=== PATIENT | female | born 1945 | race Caucasian/White ===

== ENCOUNTER → 2017-12-14 11:01 | Outpatient (CLI) | payer MEDICARE, SELFPAY ==
[2017-12-14 13:00] LABS: T4 Free Direct 1.43 ng/dL (0.76-1.46); Thyroid Stim Hormone (TSH) 0.15 uIU/mL (0.358-3.74)
[2017-12-14 13:27] LABS: Hemoglobin A1c 10.1 % (4.2-6.3)
[2017-12-15 09:00] LABS: T3 Total - Triiodothyronine 0.89 ng/mL (0.6-1.81)
== END ==
PROVIDERS: Family Provider Family Medicine; PCP Family Medicine; Visit Provider Family Medicine
DX: E03.9 Hypothyroidism, unspecified (principal); E11.65 Type 2 diabetes mellitus with hyperglycemia
CPT/HCPCS: 36415; 83036; 84439; 84443; 84480

== ENCOUNTER 2019-04-24 20:38 | Emergency (ER) | payer MEDICARE, SELFPAY ==
[2019-04-24 20:39] VITALS: BP 159/68; PULSE 66; RESP 16; TEMP 36.7; O2SAT 99; BMI 26.6
[2019-04-24 21:01] LABS: Bedside Glucose 446 mg/dL (70-110)
[2019-04-24 21:11] LABS: Absolute Lymphocyte Count 1.09 X10^3/ul (0.83-4.51); Absolute Neutrophil Count 3.5 X10^3/uL (2.0-7.7); Basophil# 0.02 X10^3/uL; Basophil% 0.4 % (0-1); Eosinophil# 0.05 X10^3/uL; Hematocrit 37.3 % (37-47); Hemoglobin 13.1 g/dl (12.0-15.0); Lymphocyte # 1.09 X10^3/ul (4.0); Lymphocyte % 21.7 % (19-41); Mean Corp Hgb Conc 35.1 g/gl (32-36); Mean Corpuscular Hgb 28.1 pg (27.0-32.0); Mean Platelet Vol. 11.5 fl (6.2-12.0); Monocyte# 0.31 X10^3/uL; Monocyte% 6.2 % (0-10); Neutrophil # 3.53 X10^3/uL (2.7-7.7); Neutrophil % 70.3 % (47-70); Platelet Count 175 K/mm3 (150-450); RBC Distribution Width CV 12.8 % (11.6-14.6); RBC Distribution Width SD 36.9 fl (35.1-43.9); Red Blood Count 4.66 M/mm3 (4.2-5.4)
[2019-04-24] MEDS: 0.9% Normal Saline 1,000 ML 1000 ML IV ×2 (21:12→21:51)
[2019-04-24] MEDS: Insulin Lispro 100 UNIT/ML INSULN.PEN 10 UNIT SC (21:12)
[2019-04-24 21:26] LABS: POSITIVE COUNT NO; POSITIVE DIFFERENTIAL NO; POSITIVE MORPHOLOGY NO
[2019-04-24 21:30] LABS: Anion Gap 9 (5-15); BUN 15 mg/dL (7-18); BUN/Creat Ratio 15.5 RATIO (10-20); Calcium,Total 8.8 mg/dL (8.5-10.1); Chloride 100 mmol/L (98-107); Creatinine, Serum 0.97 mg/dL (0.55-1.02); EST Glomerular Filtration Rate 60 mL/min (>60); Est Glom Filt Rate - Afr Amer 72 mL/min (>60); Estimated Creatinine Clearance 45.09 ml/min; Glucose 415 mg/dL (74-106); Sodium Level 136 mmol/L (136-145)
[2019-04-24 22:03] LABS: Osmolality, Serum 301 mOsm/KG (280-301)
[2019-04-24 22:40] VITALS: BP 142/111; PULSE 58; RESP 21; TEMP 36.8; O2SAT 100
--- NOTE | 2019-04-24 22:42 | ED.VIS.GEN ---
History of Present Illness Chief Complaint: Hyperglycemia Narrative: Patient presenting for evaluation secondary to hyperglycemia. Patient reports that she has a underlying history of diabetes. She is to be on metformin, her primary care doctor switched her over to long-acting insulin. She reports that it was too expensive so she has been off of it for a year and a half. Patient states that since yesterday she has been feeling a little bit lightheaded, so she took her blood sugar tonight which she has not done in a long time and it was noted to be in the 400 range. She denies any other infectious signs or symptoms. She denies any chest pain or palpitations. Review of systems otherwise negative. Past Medical History - Allergies and Home Meds Allergies/Adverse Reactions: Allergies erythromycin base Allergy (Verified 04/24/19 20:38) Unknown Primary Care Physician: Flores Castillo DO [Primary Care Provider] - Surgical History: - - R lumpectomy. Smoking Status: Former smoker - Family History Maternal Family History: Reports: No pertinent history Paternal Family History: Reports: Diabetes, Heart Disease Review of Systems All systems negative except as indicated General: Reports: - - Slight lightheadedness. Denies: Fever Physical Exam Vital Signs/Narrative: Vital Signs Temp Pulse Resp BP Pulse Ox 04/24/19 20:39 98.1 F 66 16 159/68 H 99 Inital Vital Signs reviewed: Yes General: Well nourished, Well developed, No Acute Distress Head: Normocephalic, Atraumatic Eyes: Perrl, EOMI ENT: Moist mucous membranes, No rhinorrhea Neck: Supple, Nontender Cardiovascular: Regular rate, Regular rhythm, No murmurs Respiratory: No distress, CTA bilaterally, Chest nontender Abdomen: Soft, Nontender, Nondistended, Normal bowel sounds Back: Nontender, Normal Inspection Extremities: Nontender, No edema Skin: Normal color, No rash Neurological: Alert, Oriented x3, Cranial nerves II-XII grossly intact, Normal Strength, Normal Sensation Psychological: Normal affect, Normal Mood Diagnostic/Tx/Re-eval - Medical Decision Making Patient presented secondary to hyperglycemia. Patient was noted to have blood sugars in the 400s in the emergency department. Work-up was obtained to check for endorgan damage, ketosis, or abnormal serum osmolality. CBC chemistry serum osmolality and ketones were remarkable only for hyperglycemia. Patient was given 2 L of saline and 10 units insulin. I reviewed patient's records, she used to be on metformin that injected insulin is too expensive, so I will place her back on this, and recommend immediate follow-up with primary care. ED Disposition - Plan for ED Patient: Disposition: Home or Assisted Living Diagnosis: Diabetes Instructions: ED Hyperglycemia Diabetic Prescriptions: Metformin HCl 1,000 mg PO BID #20 tab Referrals: Flores Castillo DO [Primary Care Provider] - As soon as possible
[2019-04-24 22:43] VITALS: BP 142/72; PULSE 59; RESP 21; O2SAT 99
[2019-04-24] MEDS: metFORMIN HCl 1,000 MG Tablet 1000 MG PO (22:49)
[2019-04-24 22:50] LABS: Bedside Glucose 360 mg/dL (70-110)
== END 2019-04-24 23:01 | disposition home or self-care (01) ==
PROVIDERS: Emergency Provider Emergency Medicine; Family Provider Family Medicine; PCP Family Medicine
DX: E11.65 Type 2 diabetes mellitus with hyperglycemia (principal); Z88.1 Allergy status to other antibiotic agents; Z87.891 Personal history of nicotine dependence
CPT/HCPCS: 80048; 82009; 82962; 83930; 85025; 96360; 96361; 99285; J7030; A4216; J2405

== ENCOUNTER → 2019-07-19 08:20 | Outpatient (CLI) | payer MEDICARE, SELFPAY ==
[2019-07-19 12:15] LABS: Absolute Lymphocyte Count 1.21 X10^3/uL (0.83-4.51); Absolute Neutrophil Count 3.6 X10^3/uL (2.0-7.7); Basophil# 0.04 X10^3/uL; Basophil% 0.7 % (0-1); Eosinophil# 0.14 X10^3/uL; Eosinophils% 2.5 % (0-5); Hematocrit 40.2 % (37-47); Hemoglobin 13.4 g/dL (12.0-15.0); Lymphocyte # 1.21 X10^3/ul (4.0); Lymphocyte % 21.8 % (19-41); Mean Corp Hgb Conc 33.3 g/dL (32-36); Mean Corpuscular Hgb 28.3 pg (27.0-32.0); Mean Platelet Vol. 11.9 fl (6.2-12.0); Monocyte# 0.49 X10^3/uL; Monocyte% 8.8 % (0-10); NRBC Flagged by Analyzer 0 % (0-5); Neutrophil # 3.61 X10^3/uL (2.7-7.7); Neutrophil % 65.3 % (47-70); Platelet Count 199 K/mm3 (150-450); RBC Distribution Width CV 12.3 % (11.6-14.6); RBC Distribution Width SD 37.7 fl (35.1-43.9); Red Blood Count 4.73 M/mm3 (4.2-5.4); White Blood Count 5.5 K/mm3 (4.4-11.0)
[2019-07-19 12:46] LABS: Hemoglobin A1c 6.9 % (4.2-6.3)
[2019-07-19 12:59] LABS: AST(SGOT) 14 U/L (15-37); Alanine Aminotransfer ALT/SGPT 21 U/L (13-56); Albumin, Serum 3.6 g/dL (3.2-5.0); Alkaline Phosphatase 69 U/L (45-117); Anion Gap 6 (5-15); BUN 14 mg/dL (7-18); BUN/Creat Ratio 16.1 RATIO (10-20); Calcium,Total 9.3 mg/dL (8.5-10.1); Chloride 104 mmol/L (98-107); Cholesterol 147 mg/dL (200); Creatinine, Serum 0.87 mg/dL (0.55-1.02); EST Glomerular Filtration Rate 68 mL/min (>60); Est Glom Filt Rate - Afr Amer 82 mL/min (>60); Globulin 3.6 g/dL (2.2-4.2); Glucose 172 mg/dL (74-106); High Density Lipoprotein 60 mg/dL; Potassium 4.3 mmol/L (3.5-5.1); Protein, Total 7.2 g/dL (6.4-8.2); Sodium Level 137 mmol/L (136-145); Thyroid Stim Hormone (TSH) 0.44 uIU/mL (0.358-3.74); Triglycerides 154 mg/dL; Very Low Density Lipoprotein 31 mg/dL (5-40)
== END ==
PROVIDERS: Family Provider Family Medicine; PCP Family Medicine; Visit Provider Family Medicine
DX: E11.65 Type 2 diabetes mellitus with hyperglycemia (principal); I10 Essential (primary) hypertension; E03.9 Hypothyroidism, unspecified; E78.5 Hyperlipidemia, unspecified
CPT/HCPCS: 36415; 80053; 80061; 83036; 84443; 85025

== ENCOUNTER 2019-08-08 01:33 | Inpatient (IN) | payer MEDICARE, SELFPAY ==
[2019-08-08] VITALS (49 sets, daily range): BP systolic 80–142; BP diastolic 43–123; PULSE 49–175; RESP 12–23; TEMP 36.3–36.9; O2SAT 93–100; BMI 27.5; BMI 26.6; BMI 26.7
--- NOTE | 2019-08-08 01:37 | RAD_ITS ---
STUDY: X-RAY CHEST REASON FOR EXAM: Female, 73 years old. Chest pain TECHNIQUE: Single AP portable view of the chest. COMPARISON: None. FINDINGS: Subsegmental atelectasis in the left lung base. There is no demonstrated pleural abnormality. Normal size heart. Normal mediastinum and valencia. Normal visualized pulmonary arteries. Normal visualized aortic arch and descending thoracic aorta. Normal visualized thoracic spine. There is degenerative osteoarthritis of the bilateral shoulders. There is no demonstrated abnormality of the visualized soft tissue structures of the upper abdomen. RAD/Chest 1 View (Portable) IMPRESSION: Degenerative changes, as described above. No demonstrated acute cardiopulmonary process. Electronically Signed: Dawn Blackwood, at 1:54 EDT Tel , Service support ,
--- NOTE | 2019-08-08 01:37 | EKG12_ITS ---
Test Reason : CP Blood Pressure : / mmHG Vent. Rate : 156 BPM Atrial Rate : 170 BPM P-R Int : 000 ms QRS Dur : 074 ms QT Int : 284 ms P-R-T Axes : 000 009 125 degrees QTc Int : 457 ms Atrial fibrillation with rapid ventricular response Nonspecific ST & abnormality Abnormal ECG Confirmed by MANNY CALABRESE, CHINMAY ([id number]), editor magazine SUSY BUCK ([id number]) on 08/09/2019 12:30:26 PM Referred By: Pranav Cross Confirmed By:CHINMAY BRYANT MD
--- NOTE | 2019-08-08 01:38 | ED.DCSUM_ITS ---
History of Present Illness Chief Complaint: Chest Pain Informant: Patient Onset: Today Context: Sudden Onset Timing: Continuous Current Severity: Moderate Maximum Severity: Moderate Narrative: The patient presents to the emergency department with sudden onset palpitations. Patient states she was in her normal state of health. She states that she was lying down to try to sleep. She felt like her heart was skipping beats and then began to race. She does describe some tightness across her chest into her neck. She denies being short of breath. She denies any nausea or vomiting. The patient does have a history of [id number] diabetes. She denies any history of coronary vascular disease. She denies any history of prior atrial fibrillation. She is not on anticoagulants. Prior similar symptoms: No Recent Illness/Hospitalization: No Past Medical History - Allergies and Home Meds Allergies/Adverse Reactions: Allergies erythromycin base Allergy (Verified 04/24/19 20:38) Unknown Primary Care Physician: Flores Castillo DO [Primary Care Provider] - Prior records reviewed: Yes Past Medical History: - Surgical History: - - R lumpectomy. Smoking Status: Former smoker - Family History Maternal Family History: Reports: No pertinent history Paternal Family History: Reports: Diabetes, Heart Disease Review of Systems General: Denies: Chills, Fever, Sweats Eyes: Denies: Visual changes - bilaterally, Diplopia ENT: Denies: Rhinorrhea, Sore throat Cardiovascular: Reports: Chest pain, Palpitations Respiratory: Denies: Dyspnea, Cough, Dyspnea on exertion Gastrointestinal: Denies: Abdominal pain, Nausea, Vomiting, Diarrhea, Melena, Hematochezia Genitourinary: Denies: Dysuria, Hematuria, Frequency Musculoskeletal: Denies: Back pain, Extremity Pain Skin: Denies: Rash, Wounds Neurological: Denies: Headache, Weakness, Numbness Physical Exam Vital Signs/Narrative: Vital Signs Temp Pulse Resp BP Pulse Ox 08/08/19 01:34 97.3 F L 174 H 20 H 136/118 H 97 Inital Vital Signs reviewed: Yes General: Well nourished, Well developed, No Acute Distress Head: Normocephalic, Atraumatic Eyes: Perrl, EOMI ENT: Moist mucous membranes, No rhinorrhea Neck: Supple, Nontender Cardiovascular: No murmurs, Irregular, Tachycardia Respiratory: No distress, CTA bilaterally, Chest nontender Abdomen: Soft, Nontender, Nondistended, Normal bowel sounds Back: Nontender, Normal Inspection Extremities: Nontender, No edema Skin: Normal color, No rash Neurological: Alert, Oriented x3, Cranial nerves II-XII grossly intact, Normal Strength, Normal Sensation Psychological: Normal affect, Normal Mood Diagnostic/Tx/Re-eval Chest X-Ray - ED: 1 View, Read by ED Physician, Normal, Heart, Lungs, Mediastinum, Bony Structures Abnormal Lab Results 08/08/19 08/08/19 08/08/19 01:35 01:35 01:35 WBC 8.3 RBC 4.90 Hgb 13.8 Hct 40.5 MCV 82.7 MCH 28.2 MCHC 34.1 RDW Std Deviation 37.0 RDW Coeff of Jitendra 12.3 Plt Count 236 MPV 11.0 Immature Gran % (Auto) 0.400 Neut % (Auto) 62.8 Lymph % (Auto) 25.8 [place] % (Auto) 8.3 Eos % (Auto) 2.0 Baso % (Auto) 0.7 Absolute Neuts (auto) 5.2 Absolute Lymphs (auto) 2.14 Nucleated RBC % 0 PT 13.3 INR 1.0 APTT 28.1 Sodium 138 Potassium 3.7 Chloride 105 Carbon Dioxide 27.0 Anion Gap 6 BUN 15 Creatinine 0.82 Estim Creat Clear Calc 53.34 Est GFR (MDRD) Af Amer 87 Est GFR (MDRD) Non-Af 72 BUN/Creatinine Ratio 18.2 Glucose 150 H Calcium 9.3 Magnesium 2.0 Troponin I < 0.015 TSH 0.34 L - Rhythm Strip Rhythm Strip: A-fib Rate: 140 Ectopy: PAC(s) - EKG Initial EKG Interpretation: Atrial Fibrillation, Non-Specific ST Changes Prior: Changed - Medical Decision Making The patient presents to the emergency department palpitations and dyspnea. EKG was obtained on patient arrival. It demonstrated atrial fibrillation with rapid ventricular response. There was some lateral ST changes that are likely rate based. IV was established. Chest x-ray shows no evidence of large cardiac silhouette or volume overload. The patient was given 20 mg of IV diltiazem and started on diltiazem drip. Her rate had markedly improved into the 100s. Her tightness had resolved. Screening labs were relatively unremarkable. At this point, given the patient's new onset atrial fibrillation with RVR, I do feel that admission would be of benefit. The patient was discussed with the h ospitalist. Impression 1. New onset A. fib with RVR ED Disposition - Plan for ED Patient: Referrals: Flores Castillo DO [Primary Care Provider] -
[2019-08-08 01:46] LABS: Absolute Lymphocyte Count 2.14 X10^3/uL (0.83-4.51); Absolute Neutrophil Count 5.2 X10^3/uL (2.0-7.7); Basophil# 0.06 X10^3/uL; Basophil% 0.7 % (0-1); Eosinophil# 0.17 X10^3/uL; Hematocrit 40.5 % (37-47); Hemoglobin 13.8 g/dL (12.0-15.0); Lymphocyte # 2.14 X10^3/ul (4.0); Lymphocyte % 25.8 % (19-41); Mean Corp Hgb Conc 34.1 g/dL (32-36); Mean Corpuscular Hgb 28.2 pg (27.0-32.0); Mean Corpuscular Volume 82.7 fL (81-99); Monocyte# 0.69 X10^3/uL; Monocyte% 8.3 % (0-10); NRBC Flagged by Analyzer 0 % (0-5); Neutrophil # 5.22 X10^3/uL (2.7-7.7); Neutrophil % 62.8 % (47-70); Platelet Count 236 K/mm3 (150-450); RBC Distribution Width CV 12.3 % (11.6-14.6); White Blood Count 8.3 K/mm3 (4.4-11.0)
[2019-08-08] MEDS: dilTIAZem 25 MG/5 ML Vial 20 MG IV BOLUS (01:47)
[2019-08-08 02:01] LABS: Prothrombin Time (Protime)PT. 13.3 SECONDS (11.7-14.9)
[2019-08-08 02:02] LABS: Partial Thromboplast Time 28.1 Seconds (24.1-36.2)
[2019-08-08 02:07] LABS: Anion Gap 6 (5-15); BUN 15 mg/dL (7-18); BUN/Creat Ratio 18.2 RATIO (10-20); Calcium,Total 9.3 mg/dL (8.5-10.1); Chloride 105 mmol/L (98-107); Creatinine, Serum 0.82 mg/dL (0.55-1.02); EST Glomerular Filtration Rate 72 mL/min (>60); Est Glom Filt Rate - Afr Amer 87 mL/min (>60); Estimated Creatinine Clearance 53.34 ml/min; Glucose 150 mg/dL (74-106); Potassium 3.7 mmol/L (3.5-5.1); Sodium Level 138 mmol/L (136-145); Thyroid Stim Hormone (TSH) 0.34 uIU/mL (0.358-3.74)
--- NOTE | 2019-08-08 02:18 | PCM.HP.STD ---
Problem List (1) Diabetes mellitus, type II Status: Chronic Qualifiers: Diabetes mellitus complication status: with unspecified complications (2) HTN (hypertension) Status: Chronic Qualifiers: Hypertension type: essential hypertension Qualified Code(s): I10 - Essential (primary) hypertension (3) HLD (hyperlipidemia) Status: Chronic Qualifiers: Hyperlipidemia type: unspecified Qualified Code(s): E78.5 - Hyperlipidemia, unspecified (4) History of tobacco use Status: Chronic (5) New onset atrial fibrillation Status: Acute History of Present Illness Date of Admission: 08/08/19 Chief Complaint: PALPITATIONS The patient is a 73 year old F with a significant history of hypertension; hyperlipidemia; carotid artery disease; hyperlipidemia; hypothyroidism and former tobacco abuse who presented to emergency department with palpitations that started about 1 hour prior to presentation. Her symptoms started when she woke up from her sleep. Associated with her symptoms is chest tightness; nausea; lightheadedness; shortness of breath and tremulousness. The squad noted that patient was in A. fib with RVR. Also the emergency department patient was noted to be in A. fib with RVR for which reason she received Cardizem 20 mg IV bolus and was sent on a Cardizem drip. Patient has had stress from helping out family members who are sick - and grand step father. Past Medical History Past Medical History (Chronic Problems): Chronic Problems Diabetes mellitus, type II (Chronic) HTN (hypertension) (Chronic) Carotid arterial disease (Chronic) Notes last imaging 2-3 years prior noted as moderate disease. Obesity (BMI 30.0-34.9) (Chronic) HLD (hyperlipidemia) (Chronic) History of tobacco use (Chronic) Allergies erythromycin base Allergy (Verified 04/24/19 20:38) Unknown Home Medications: Ambulatory Orders Medication Instructions Recorded Aspirin [Aspirin, Baby] 81 mg PO DAILY@0800 04/28/16 Co Q10 200 [Co Q-10] 100 mg PO DAILY 04/28/16 Losartan Potassium [Cozaar] 50 mg PO QHS 04/28/16 Simvastatin [Zocor] 40 mg PO QHS 04/28/16 Synthroid 100 mcg PO DAILY 04/28/16 Atenolol [Tenormin (beta sergio)] 50 mg PO QHS 04/24/19 Metformin HCl 1,000 mg PO BID #20 tab 04/24/19 Glipizide 5 mg PO DAILY 08/08/19 Surgical History: - - R lumpectomy. Psychiatric History: No pertinent psych hx [employer] History: No pertinent [employer] history Lives: Spouse/ Significant Other Smoking Status: Former smoker Alcohol: None - *Family History Maternal History Items: - - Patient denies any maternal medical history except that her grandfather had tuberculosis. Paternal History Items: Diabetes, Heart Disease Review of Systems Constitutional: Denies: Chills, Fever, Weight Change HEENT: Denies: Head Aches, Sinus Congestion, Sinus Drainage Cardiovascular: Reports: Chest Tightness, Light Headedness, Palpitations. Denies: Edema, Heaviness, Syncope Respiratory: Reports: Shortness of Breath, Shortness of breath at rest. Denies: Cough, Sputum production Gastrointestinal: Reports: Nausea. Denies: Abdominal Pain, Vomiting Genitourinary: Denies: Dysuria Musculoskeletal: Denies: Joint Pain, Joint Tenderness Skin: Denies: Rash, Wounds Neurological: Reports: Tremor. Denies: Focal weakness, Numbness, Tingling Psychiatric: Denies: Anxiety, Depression, Homicidal Ideations, Suicidal Ideations Hematologic/ Lymphatic: Denies: Easy Bruising, Easy Bleeding VTE Information - Inpt Only VTE Present on Admission: No VTE Mechan Device Prophylaxis: None VTE Pharm Prophylaxis ordered?: No Reason prophylaxis not ordered:: Treatment Not Indicated - Given therapeutic dose of Lovenox for A. fib. Patient Problems: Active and Suspected Problems New onset atrial fibrillation (Acute) - Physical Exam General: Alert, Oriented x3, Cooperative HEENT: Atraumatic, PERRLA, EOMI, Normocephalic Neck: Supple, No JVD, Negative Carotid Bruits Lungs: Clear to auscultation, Normal air movement, No rhonchi, No wheeze, No rales Cardiovascular: Normal S1, Normal S2, Irregular Rate, Tachycardic Abdomen: Bowel Sounds Present, Soft, Non Tender Extremities: No edema, Capillary Refill Less than 3 Seconds Skin: No rashes, No breakdown Musculoskeletal: No Tenderness to Palpation of Joints or Extremities Neurological: Cranial nerves II-XII grossly intact Psych/Mental Status: Normal Affect, Appropriate Vital Signs Temp Pulse Resp BP Pulse Ox 97.3 F L 95 14 142/123 H 98 08/08/19 01:34 08/08/19 01:56 08/08/19 01:56 08/08/19 01:56 08/08/19 01:56 Oxygen Flow Rate (L/min) 2 Oxygen Delivery Method Nasal Cannula Weight: 75 kg Body Mass Index (BMI) 27.5 Finger Stick Blood Glucose 157 Laboratory Tests Past 24 Hrs 08/08/19 08/08/19 08/08/19 01:35 01:35 01:35 WBC 8.3 RBC 4.90 Hgb 13.8 Hct 40.5 MCV 82.7 MCH 28.2 MCHC 34.1 RDW Std Deviation 37.0 RDW Coeff of Jitendra 12.3 Plt Count 236 MPV 11.0 Immature Gran % (Auto) 0.400 Neut % (Auto) 62.8 Lymph % (Auto) 25.8 [place] % (Auto) 8.3 Eos % (Auto) 2.0 Baso % (Auto) 0.7 Absolute Neuts (auto) 5.2 Absolute Lymphs (auto) 2.14 Nucleated RBC % 0 PT 13.3 INR 1.0 APTT 28.1 Sodium 138 Potassium 3.7 Chloride 105 Carbon Dioxide 27.0 Anion Gap 6 BUN 15 Creatinine 0.82 Estim Creat Clear Calc 53.34 Est GFR (MDRD) Af Amer 87 Est GFR (MDRD) Non-Af 72 BUN/Creatinine Ratio 18.2 Glucose 150 H Calcium 9.3 Magnesium 2.0 Troponin I < 0.015 TSH 0.34 L Assessment/Plan All Active Problems New onset atrial fibrillation (Acute) Chest pain (Acute) The patient is a 73 year old F with a significant history of hypertension; hyperlipidemia; carotid disease; hyperlipidemia; hypothyroidism and former tobacco abuse who presented to emergency department with palpitations that started about 1 hour prior to presentation; chest tightness; nausea; lightheadedness; shortness of breath and tremulousness and was found to have low TSH and was in in A. fib with RVR. A. fib with RVR Place on PCU on telemetry Serial cardiac enzymes Obtain echo [id number] = six-points which translates to 9.7% stroke risk per year (age more or equal 73; female gender; hypertension history; vascular disease history (carotid artery disease in right carotid); diabetes ). Lovenox 1 mg per kilogram subcutaneous x 1. Consider further anticoagulation For rate control: Received Cardizem 20 mg IV x1 and started on Cardizem drip at the emergency department. Cardizem drip continued. Potassium level was 3.7. Will optimize by giving 30 mEq of potassium. Trend BMP. Magnesium level is 2.0; appropriate. Chest x-ray: Did not show any acute cardiopulmonary process. His x-ray was independently reviewed. I agree with radiologist interpretation. Troponin was unremarkable at the emergency department; trend. Check lipid panel. TSH was low pointing to possible hyperthyroidism from use of Synthroid. Hold Synthroid and check free T4. Consult [facility] Chest Pain Likely related to Afib. Management as in Afib. Hypertension On presentation and her blood pressure was not within goal. Of note patient has been started on Cardizem drip to control A. fib. On home atenolol and Cozaar which will be continued. Parameters placed on blood pressure medications. Trend blood pressure and adjust blood pressure medications. Hyperlipidemia Zocor with CoQ10 continued HLD Aspirin continued Hypothyroidism Synthroid held due to low TSH. Check free T4 as above. Diabetes mellitus On presentation her blood glucose was within goal Glipizide continued. Metformin held since it is too early in admission. Accu-Chek q. before meals at bedtime with correction scale insulin. DVT prophylaxis Not indicated since patient has been given therapeutic dose of Lovenox for A. fib. Code Visit Inpatient E&M: 31683 Init Hosp L3
--- NOTE | 2019-08-08 03:01 | ECHOD_ITS ---
Reason For Study: AFIB/FLUTTER Procedure This was a 2D Doppler, Color Flow transthoracic echocardiogram. The exam was of adequate technical quality. Exam performed portable in patient room. Left Ventricle Normal LV size. Left ventricular systolic function is normal. The estimated ejection fraction is 65 %. Unable to assess diastolic dysfunction. No regional wall motion abnormalities noted. Right Ventricle Normal RV size. Normal systolic function. Atria The left atrium is mildly enlarged. Normal right atrium. No doppler evidence for ASD. Mitral Valve There is no mitral annular calcification. Normal mitral valve. Mild (1+) mitral valve insufficiency. Tricuspid Valve Normal tricuspid valve. Mild tricuspid valve insufficiency. Right ventricular systolic pressure estimated to be 25 mmHg. Aortic Valve Trisinus/trileaflet aortic valve. Mild diffuse aortic valve thickening. Moderate focal aortic valve calcification. Aortic sclerosis, no stenosis. Trivial aortic valve insufficiency. Pulmonic Valve The pulmonic valve is not well visualized. Trivial pulmonic valve insufficiency. Great Vessels Normal sized aortic root. Calcified aortic root. Pericardium/Pleural No pericardial effusion. MMode/2D Measurements & Calculations LVIDd: 3.6 cm IVSd: 1.2 cm Ao root diam: 3.0 cm LVIDs: 2.5 cm LVPWd: 1.2 cm RVDd: 3.2 cm FS: 30.0 % LAV(MOD-bp): 60.9 ml LA A4 area: 19.3 cm2 LA dimension(2D): 3.8 cm LAV(MOD-bp) Indexed: 33.7 ml/m2 LAV(MOD-sp2): 58.8 ml LAV(MOD-sp4): 57.5 ml RA A4 area: 16.2 cm2 Doppler Measurements & Calculations MV E max alex: 121.8 cm/sec Ao V2 max: 107.2 cm/sec AI max alex: 339.3 cm/sec Ao max P.6 mmHg AI max P.1 mmHg AI dec slope: 146.8 cm/sec2 AI P1/2t: 677.1 msec LV V1 max: 92.2 cm/sec PA V2 max: 69.0 cm/sec TR max alex: 234.5 cm/sec LV V1 max P.4 mmHg TR max P.0 mmHg Interpretation Summary Left ventricular systolic function is normal. The estimated ejection fraction is 65 %. The left atrium is mildly enlarged. Mild (1+) mitral valve insufficiency. Mild tricuspid valve insufficiency. Aortic sclerosis, no stenosis. Trivial aortic valve insufficiency. Trivial pulmonic valve insufficiency. Calcified aortic root. Right ventricular systolic pressure estimated to be 25 mmHg. Unable to assess diastolic dysfunction. Ordering Physician: Pranav Cross Referring Physician: Flores Castillo Performed By: Lyn Hall, CARLOS, RVT
[2019-08-08] MEDS: Enoxaparin 80 MG/0.8 ML Syringe SC (03:49)
[2019-08-08 05:35] LABS: Cholesterol 135 mg/dL (200); High Density Lipoprotein 59 mg/dL; T4 Free Direct 1.57 ng/dL (0.76-1.46); Triglycerides 85 mg/dL; Very Low Density Lipoprotein 17 mg/dL (5-40)
--- NOTE | 2019-08-08 06:13 | PCM.PN.BLA ---
Progress Note With patient still in Afib with RVR and with systolic blood pressure lower than 100 and low 100s will continue Cardizem drip at 10mg/hr without any further increase and will give a loading dose of digoxin; creatinine clearance is appropriate; will use lean body weight. Of note patient is on atenolol qhs and losartan qhs. Losartan mostly likely for additional benefit for diabetes. Consider necessary blood pressure management if patient continues on cardizem drip or cardizem po.
[2019-08-08] MEDS: TITRATION PARAMETER CHANGE 10 EACH IV (06:46)
[2019-08-08] MEDS: Digoxin 250 MCG/ML Ampul IV (06:50)
[2019-08-08] MEDS: Insulin Lispro 100 UNIT/ML INSULN.PEN SC ×3 (06:51→21:22)
[2019-08-08] MEDS: 0.9% NaCl Peripheral Flush Adult/Peds IV ×3 (06:54→11:19)
[2019-08-08 07:11] LABS: Bedside Glucose 153 mg/dL (70-110)
--- NOTE | 2019-08-08 07:48 | NURSING ---
Pt. also has in her belongings a purse and cell phone.
--- NOTE | 2019-08-08 09:25 | CASEMGMT ---
According to [facility] website, the following are in-network tertiary facilities: [facility], [place], [facility], [place], [facility], [place], [facility], and . Marta MENA CM
[2019-08-08] MEDS: glipiZIDE 5 MG Tablet PO (09:58)
[2019-08-08] MEDS: Aspirin 81 MG TAB.CHEW PO (09:59)
--- NOTE | 2019-08-08 10:24 | CON.PCM_ITS ---
Problem List (1) Chest pain Status: Acute (2) Abnormal cardiac enzyme level Status: Acute (3) New onset atrial fibrillation Status: Acute (4) HLD (hyperlipidemia) Status: Chronic Qualifiers: Hyperlipidemia type: unspecified Qualified Code(s): E78.5 - Hyperlipidemia, unspecified (5) HTN (hypertension) Status: Chronic Qualifiers: Hypertension type: essential hypertension Qualified Code(s): I10 - Essential (primary) hypertension (6) Diabetes mellitus, type II Status: Chronic Qualifiers: Diabetes mellitus complication status: with unspecified complications (7) Carotid arterial disease Status: Chronic Qualifiers: Laterality: right Comment: Notes last imaging 2-3 years prior noted as moderate disease. Reason for Consult Date of Consultation: 08/08/19 History of Present Illness: The patient is a 73 year old -year-old white female with a past medical history of hyperlipidemia, hypertension, diabetes mellitus, carotid artery disease, who presents for evaluation of chest pain, subsequent findings of abnormal cardiac enzymes/troponin I levels, and atrial fibrillation with rapid ventricular response. The patient states that she awoke with a sensation of palpitations, chest discomfort, nausea, and a sensation of lightheadedness. She does not recall an acute change in her respiratory status nor does she recall having emesis. She subsequently presented to the emergency department for further evaluation. She was noted to have a negative troponin I level. She had an ECG demonstrated atrial fibrillation with rapid ventricular response with nonspecific ST segment abnormality. She was treated with IV diltiazem bolus/infusion. She was placed in the PCU for further evaluation and care. She states as her heart rate has slowed down she has felt better. She has been monitored her troponin I levels which are trending up. She has remained in atrial fibrillation. She denies any history of orthopnea, PND, or peripheral pitting edema. There has been no near syncope or syncope. She did have an exercise tolerance test/nuclear imaging study performed in 2016. At that time it was considered to be negative. She did not require additional cardiovascular evaluation and/or care. She states that she does have the aforementioned diagnoses including the carotid artery disease which she describes as right- sided. [] Past Medical History Allergies/Adverse Reactions: Allergies erythromycin base Allergy (Verified 04/24/19 20:38) Unknown Home Medications: Ambulatory Orders Medication Instructions Recorded Aspirin [Aspirin, Baby] 81 mg PO DAILY@0800 04/28/16 Co Q10 200 [Co Q-10] 100 mg PO DAILY 04/28/16 Losartan Potassium [Cozaar] 50 mg PO QHS 04/28/16 Simvastatin [Zocor] 40 mg PO QHS 04/28/16 Synthroid 100 mcg PO DAILY 04/28/16 Atenolol [Tenormin (beta sergio)] 50 mg PO QHS 04/24/19 Metformin HCl 1,000 mg PO BID #20 tab 04/24/19 Glipizide 5 mg PO DAILY 08/08/19 Past Medical History (Chronic Problems): Chronic Problems Diabetes mellitus, type II (Chronic) HTN (hypertension) (Chronic) Carotid arterial disease (Chronic) Notes last imaging 2-3 years prior noted as moderate disease. Obesity (BMI 30.0-34.9) (Chronic) HLD (hyperlipidemia) (Chronic) History of tobacco use (Chronic) Surgical History: - - R lumpectomy. Psychiatric History: No pertinent psych hx MATERIAL CUTTER History: No pertinent MATERIAL CUTTER history - *Family History Maternal History Items: - - Patient denies any maternal medical history except that her grandfather had tuberculosis. Paternal History Items: Diabetes, Heart Disease Lives: Spouse/ Significant Other Smoking Status: Former smoker Alcohol: None Drugs: None Review of Systems - Review of Systems General: Denies: Fever, Night Sweats, Fatigue Cardiovascular: Reports: Chest Discomfort, Chest Discomfort at Rest, Palpitations, Lightheadedness. Denies: Shortness of Breath, Orthopnea, PND, Peripheral Edema, Dizziness, Near Syncope, Syncope Respiratory: Denies: Cough, Sputum Production, Hemoptysis Gastrointestinal: Reports: Nausea. Denies: Hematemesis, Hematochezia, Melena Genitourinary: Denies: Dysuria, Hematuria Subjectve: This is a 73-year-old white female who appears to be resting comfortably at the moment in no acute distress. Objective: Vital Signs Temp Pulse Resp BP Pulse Ox 98.2 F 80 12 113/49 L 100 08/08/19 10:00 08/08/19 10:00 08/08/19 10:00 08/08/19 10:00 08/08/19 10:00 Oxygen Flow Rate (L/min) 2 Oxygen Delivery Method Room Air Weight: 162 lb 14.746 oz Body Mass Index (BMI) 26.6 Finger Stick Blood Glucose 157 Intake and Output for Last 24 Hours 08/06/19 08/07/19 08/08/19 23:59 23:59 23:59 Intake Total 326.92 / 326.92 Output Total 450 / 450 Balance -123.08 / -123.08 General: Awake, Alert, Oriented x 3, Cooperative, No Acute Distress HEENT: Atraumatic, Normocephalic, PERRL, EOMI, Sclera Non Icteric Oral: Moist Mucosa Neck: Supple, Good ROM, No JVD Lungs: Clear to auscultation Cardiovascular: Irregular Rhythm, Normal S1, Normal S2 Vascular: R Carotid Artery Bruits Abdomen: Bowel Sounds Present, Soft, Non Tender Extremities: No Cyanosis, No Clubbing, No edema Neurological: No Focal Motor or Sensory Deficit Psych/Mental Status: Appropriate 08/08/19 01:35: WBC 8.3, RBC 4.90, Hgb 13.8, Hct 40.5, MCV 82.7, MCH 28.2, MCHC 34.1, Plt Count 236, MPV 11.0, Immature Gran % (Auto) 0.400, Neut % (Auto) 62.8, Lymph % (Auto) 25.8, [place] % (Auto) 8.3, Eos % (Auto) 2.0, Baso % (Auto) 0.7, Absolute Neuts (auto) 5.2, Nucleated RBC % 0 08/08/19 01:35: PT 13.3, INR 1.0, APTT 28.1 08/08/19 01:35: Sodium 138, Potassium 3.7, Chloride 105, Carbon Dioxide 27.0, Anion Gap 6, BUN 15, Creatinine 0.82, Est GFR (MDRD) Af Amer 87, Est GFR (MDRD) Non-Af 72, BUN/Creatinine Ratio 18.2, Glucose 150 H, Calcium 9.3, Magnesium 2.0, Troponin I < 0.015 08/08/19 04:54: Troponin I 0.047 H, Triglycerides 85, Cholesterol 135, LDL Cholesterol 59, VLDL Cholesterol 17, HDL Cholesterol 59 08/08/19 07:25: Troponin I 0.088 H Rhythm: Atrial fibrillation EKG: As noted above ECHO: 08-08-19 Interpretation Summary Left ventricular systolic function is normal. The estimated ejection fraction is 65 %. The left atrium is mildly enlarged. Mild (1+) mitral valve insufficiency. Mild tricuspid valve insufficiency. Aortic sclerosis, no stenosis. Trivial aortic valve insufficiency. Trivial pulmonic valve insufficiency. Calcified aortic root. Right ventricular systolic pressure estimated to be 25 mmHg. Unable to assess diastolic dysfunction. Stress Test: 6?23?16 PHARMACOLOGIC STRESS TEST A 70-year-old lady with a history of chest pain. MEDICATIONS: Synthroid, Cozaar, Lovenox, Levemir, Lipitor. Resting EKG demonstrates normal sinus rhythm with a rate of 80 beats per minute. Normal intervals are noted. Resting blood pressure was 144/70. 0.4 mg of regadenoson was infused per usual protocol followed by rapid intravenous saline flush injection. Continuous EKG monitoring was performed. The maximum heart rate attained was 108 beats per minute, which was 72% of maximum predicted heart rate. Maximum workload attained was 1 MET. At rest, there were no ST or T-wave changes noted to suggest abnormal flow reserve. At peak infusion, no ST or T-wave changes were noted to suggest abnormal flow reserve. The resting blood pressure was 140/70 with a peak blood pressure of 172/68. The patient apparently developed chest discomfort during the stress test, she was given sublingual nitroglycerin with no significant relief. MYOCARDIAL PERFUSION PROTOCOL: 13.5 mCi of sestamibi was injected at rest. 0.4 mg of regadenoson was infused per usual protocol. At peak infusion, 40.4 mCi of sestamibi was injected. Stress images were obtained. Stress and rest images were reconstructed and compared in the short axis, vertical long and horizontal long axes. Gated images were also obtained. PERFUSION SPECT ANALYSIS: Review of the images demonstrated normal uptake of tracer noted in all areas of the myocardium. The resting images similarly demonstrated normal uptake of tracer noted in all areas of the myocardium. No areas of reversibility are noted to suggest ischemia. No previous infarct is noted. GATED SPECT ANALYSIS: The gated ejection fraction is noted to be 77%. CONCLUSION: 1. Pharmacologic myocardial perfusion stress test with no evidence of ischemia. 2. Preserved ejection fraction. CXR: Preliminary evaluation: No acute cardiopulmonary disease process appreciated: Please see official report Assessment/Plan 1. Chest pain The patient has experienced chest discomfort. The discomfort may be secondary to her atrial dysrhythmia with rapid ventricular response. However she is also undergoing evaluation for other etiologies of her chest discomfort. She has had troponin I levels which are trending up. These may be a secondary event to her atrial fibrillation with rapid ventricular response however based on her cardiovascular risk factors there be concern as to whether or not she has underlying CAD that would be contributing to her overall scenario. At the present time she is being monitored. Her laboratory studies and cardiac rhythm are being followed. It was felt prudent based upon her overall scenario that she be considered for further evaluation of her coronary anatomy. This would include a diagnostic cardiac catheterization. The procedure and risks were discussed with her and she was agreeable to this approach. 2. Abnormal cardiac enzymes Again she has abnormal cardiac enzymes. It is unclear whether this represents a secondary event to her atrial fibrillation with rapid ventricular response without an underlying primary acute coronary syndrome event versus concerns of color involvement of her coronary vessels. There is no other etiology thus far to explain her cardiac enzyme level. She will continue to be monitored. She will continue noninvasive evaluation. She is going to proceed with invasive evaluation as described above. 3. Atrial fibrillation with rapid ventricular response This may be secondary to a combination of her age, hypertension, as well as un derlying thyroid dysfunction. At the moment she is being treated with rate control therapy. Additional medication with antiarrhythmic therapy will be added and attempt to regain sinus rhythm. However she may eventually need preparation for synchronized biphasic DC cardioversion to regain sinus rhythm. She will also need to be considered for anticoagulant therapy as deemed appropriate in and around the time of her procedures, etc. 4. Hyperlipidemia She will continue risk factor modification medical management. 5. Hypertension Her blood pressure will be followed. Her medications can be adjusted as deemed appropriate. 6. Diabetes mellitus She will continue under the care of internal medicine. 7. Carotid artery disease She will continue to follow with her other physicians for her carotid artery disease process. Comment: The above was discussed and reviewed with the patient. She was agreeable to this approach. This note was generated using a voice recognition system and there may be incorrect words, spelling or punctuation that were not noted when reviewing the office note prior to saving.
--- NOTE | 2019-08-08 10:30 | CASEMGMT ---
RAJESH HAUSER assessment: Face to Face with patient for initial transition planning/care coordination assessment. RAJESH HAUSER introduced self and role at [facility], pt voices understanding and consents to assessment at this time. Pt is sitting up in bed in no distress at this time. Pt is A/Ox4 at this time and answers all questions appropriately at this time. Care providers, pharmacy, and demographics verified at this time. PCP: Jonathan Specialists: Pt states no current specialists. Preferred Pharmacy: [facility] Will/HPO[facility]: Pt states has LW/HPOA and is aware that they are not on file at [facility] at this time. Pt states that her daughter, Susana Myers, is HPOA and she will be bringing in pt's AD's. LNOK: Susana Myers, daughter Living Arrangements: Pt states lives with her who has MS and is wheelchair bound. Pt states they live in a mobile home with a lift at back door and pt states that she cares for him. Pt states is independent with ADL's. Pt states that her has an aide MWF for 2 hours and takes care of himself while she is at work. states that pt is getting hospital bed delivered today and neighbors are there to assist. Transportation: Pt states drives self and states no transportation concerns at this time. DME/HHC: Pt states has grab bars, shower chair, and glucometer and states no need for any further DME at this time. Pt states no hx of HHC or SNF. Pt states no concerns with going home at time of discharge. Pt states works 3-4days/week. Pt states does not smoke or drink ETOH. Pt states no further concerns/needs at this time. CM to follow for any further discharge planning/needs. Advised pt to ask for CM if any further questions/concerns/needs arise, voices understanding. Pt Goal: Home Plan[place] RAJESH HAUSER
[2019-08-08] MEDS: TICAGRELOR 90 MG TABLET 180 MG PO (10:39)
--- NOTE | 2019-08-08 10:58 | EKG12_ITS ---
Test Reason : RHYTHM CHANGE Blood Pressure : / mmHG Vent. Rate : 052 BPM Atrial Rate : 052 BPM P-R Int : 218 ms QRS Dur : 086 ms QT Int : 436 ms P-R-T Axes : 028 -07 -07 degrees QTc Int : 405 ms Sinus bradycardia with 1st degree A-V block Minimal voltage criteria for LVH, may be normal variant Cannot rule out Anterior infarct , age undetermined Abnormal ECG When compared with ECG of 08-AUG-2019 01:39, MANUAL COMPARISON REQUIRED, DATA IS UNCONFIRMED Confirmed by CARMEN CALABRESE, DAVY ([id number]), rewrite editor SUSY BUCK ([id number]) on 08/15/2019 10:53:14 AM Referred By: Pranav Cross Confirmed By:BRUNA MORALES MD
--- NOTE | 2019-08-08 11:08 | NURSING ---
report called to laboratory immunologist RN
[2019-08-08] MEDS: 0.9% Normal Saline 1,000 ML 15 ML IV (11:12)
--- NOTE | 2019-08-08 11:59 | NURSING ---
amio and cardizem gtt VS not taken d/t pt being down in laboratory geneticist
--- NOTE | 2019-08-08 12:10 | PCM.PROGNOTE ---
<Lizz Buck - Last Filed: 08/08/19 12:26> Patient Problems: Active and Suspected Problems New onset atrial fibrillation (Acute) Abnormal cardiac enzyme level (Acute) Subjective: Patient seen and examined. Denies further palpitations currently. Reports she continued to have palpitations earlier this morning which resolved around 8 AM. Appears to have converted to sinus rhythm. Planning for heart cath later today. Denies chest pain, shortness of breath. - Physical Exam General: Alert, Oriented x3, Cooperative HEENT: Atraumatic, PERRLA, EOMI, Normocephalic Neck: Supple, No JVD, Negative Carotid Bruits Lungs: Clear to auscultation, Normal air movement Cardiovascular: Regular rate, Regular Rhythm, Normal S1, Normal S2, No murmurs Abdomen: Bowel Sounds Present, Soft, Non Tender, Non-Distended Extremities: No clubbing, No cyanosis, No edema, Capillary Refill Less than 3 Seconds Skin: No rashes, No breakdown Musculoskeletal: No Tenderness to Palpation of Joints or Extremities Neurological: Cranial nerves II-XII grossly intact, Neuro grossly intact Psych/Mental Status: Normal Affect, Appropriate Vital Signs Temp Pulse Resp BP Pulse Ox 98.2 F 49 L 17 109/50 L 96 08/08/19 10:00 08/08/19 11:15 08/08/19 11:15 08/08/19 11:15 08/08/19 11:23 Oxygen Flow Rate (L/min) 2 Oxygen Delivery Method Room Air Weight: 162 lb 14.746 oz Body Mass Index (BMI) 26.6 Finger Stick Blood Glucose 157 Intake and Output for Last 24 Hours 08/06/19 08/07/19 08/08/19 23:59 23:59 23:59 Intake Total 681.02 / 681.02 Output Total 800 / 800 Balance -118.98 / -118.98 Laboratory Tests Past 24 Hrs 08/08/19 08/08/19 08/08/19 01:35 01:35 01:35 WBC 8.3 RBC 4.90 Hgb 13.8 Hct 40.5 MCV 82.7 MCH 28.2 MCHC 34.1 RDW Std Deviation 37.0 RDW Coeff of Jitendra 12.3 Plt Count 236 MPV 11.0 Immature Gran % (Auto) 0.400 Neut % (Auto) 62.8 Lymph % (Auto) 25.8 [place] % (Auto) 8.3 Eos % (Auto) 2.0 Baso % (Auto) 0.7 Absolute Neuts (auto) 5.2 Absolute Lymphs (auto) 2.14 Nucleated RBC % 0 PT 13.3 INR 1.0 APTT 28.1 Sodium 138 Potassium 3.7 Chloride 105 Carbon Dioxide 27.0 Anion Gap 6 BUN 15 Creatinine 0.82 Estim Creat Clear Calc 53.34 Est GFR (MDRD) Af Amer 87 Est GFR (MDRD) Non-Af 72 BUN/Creatinine Ratio 18.2 Glucose 150 H Calcium 9.3 Magnesium 2.0 Troponin I < 0.015 Triglycerides Cholesterol LDL Cholesterol VLDL Cholesterol HDL Cholesterol TSH 0.34 L Free T4 08/08/19 08/08/19 04:54 07:25 WBC RBC Hgb Hct MCV MCH MCHC RDW Std Deviation RDW Coeff of Jitendra Plt Count MPV Immature Gran % (Auto) Neut % (Auto) Lymph % (Auto) [place] % (Auto) Eos % (Auto) Baso % (Auto) Absolute Neuts (auto) Absolute Lymphs (auto) Nucleated RBC % PT INR APTT Sodium Potassium Chloride Carbon Dioxide Anion Gap BUN Creatinine Estim Creat Clear Calc Est GFR (MDRD) Af Amer Est GFR (MDRD) Non-Af BUN/Creatinine Ratio Glucose Calcium Magnesium Troponin I 0.047 H 0.088 H Triglycerides 85 Cholesterol 135 LDL Cholesterol 59 VLDL Cholesterol 17 HDL Cholesterol 59 TSH Free T4 1.57 H POC Glucose 08/08/19 06:48 POC Glucose 153 H Medical Necessity - Tobacco Use Smoking Status: Former smoker Assessment/Plan All Active Problems New onset atrial fibrillation (Acute) Abnormal cardiac enzyme level (Acute) Chest pain (Acute) 1. New onset atrial fibrillation with RVR- cardiology following. Echocardiogram demonstrated an EF of 65%, mild mitral valve insufficiency, mild tricuspid valve insufficiency. Placed on IV Cardizem and IV amiodarone. Converted to sinus rhythm. Plan for cardiac catheterization today to rule out underlying CAD. 2. Abnormal troponin- suspected secondary to #1. Patient to undergo cardiac cath as noted above. 3. Hypertension-stable, continue atenolol, losartan regimen. 4. Hyperlipidemia-continue statin regimen. 5. Hypothyroidism-TSH 0.34. Free T4 1.5. Synthroid held on admission. Recommend resuming at decreased dose at discharge and repeat TSH in 4 to 6 weeks. 6. Type 2 diabetes mellitus-metformin held on admission. Continue glipizide regimen. Accu-Cheks ACHS with sliding scale insulin. 7. Carotid artery disease-continue outpatient follow-up. Continue aspirin, statin. DVT prophylaxis-Lovenox subcu This patient was seen by BELEN Thornton under the supervision of Dr. Rey. <Lola Da Silva - Last Filed: 08/08/19 14:05> - Physical Exam Vital Signs Temp Pulse Resp BP Pulse Ox 98.2 F 56 L 18 119/49 L 98 08/08/19 10:00 08/08/19 13:30 08/08/19 13:30 08/08/19 13:30 08/08/19 13:30 Oxygen Flow Rate (L/min) 2 Oxygen Delivery Method Room Air Weight: 73.9 kg Body Mass Index (BMI) 26.6 Finger Stick Blood Glucose 157 Intake and Output for Last 24 Hours 08/06/19 08/07/19 08/08/19 23:59 23:59 23:59 Intake Total 804.71 / 804.71 Output Total 800 / 800 Balance 4.71 / 4.71 Laboratory Tests Past 24 Hrs 08/08/19 08/08/19 08/08/19 01:35 01:35 01:35 WBC 8.3 RBC 4.90 Hgb 13.8 Hct 40.5 MCV 82.7 MCH 28.2 MCHC 34.1 RDW Std Deviation 37.0 RDW Coeff of Jitendra 12.3 Plt Count 236 MPV 11.0 Immature Gran % (Auto) 0.400 Neut % (Auto) 62.8 Lymph % (Auto) 25.8 [place] % (Auto) 8.3 Eos % (Auto) 2.0 Baso % (Auto) 0.7 Absolute Neuts (auto) 5.2 Absolute Lymphs (auto) 2.14 Nucleated RBC % 0 PT 13.3 INR 1.0 APTT 28.1 Sodium 138 Potassium 3.7 Chloride 105 Carbon Dioxide 27.0 Anion Gap 6 BUN 15 Creatinine 0.82 Estim Creat Clear Calc 53.34 Est GFR (MDRD) Af Amer 87 Est GFR (MDRD) Non-Af 72 BUN/Creatinine Ratio 18.2 Glucose 150 H Calcium 9.3 Magnesium 2.0 Troponin I < 0.015 Triglycerides Cholesterol LDL Cholesterol VLDL Cholesterol HDL Cholesterol TSH 0.34 L Free T4 08/08/19 08/08/19 04:54 07:25 WBC RBC Hgb Hct MCV MCH MCHC RDW Std Deviation RDW Coeff of Jitendra Plt Count MPV Immature Gran % (Auto) Neut % (Auto) Lymph % (Auto) [place] % (Auto) Eos % (Auto) Baso % (Auto) Absolute Neuts (auto) Absolute Lymphs (auto) Nucleated RBC % PT INR APTT Sodium Potassium Chloride Carbon Dioxide Anion Gap BUN Creatinine Estim Creat Clear Calc Est GFR (MDRD) Af Amer Est GFR (MDRD) Non-Af BUN/Creatinine Ratio Glucose Calcium Magnesium Troponin I 0.047 H 0.088 H Triglycerides 85 Cholesterol 135 LDL Cholesterol 59 VLDL Cholesterol 17 HDL Cholesterol 59 TSH Free T4 1.57 H POC Glucose 08/08/19 08/08/19 13:05 06:48 POC Glucose 134 H 153 H Assessment/Plan This patient was seen in conjunction with Lizz Buck NP. I have independently interviewed and examined the patient and reviewed pertinent historical, laboratory, and other data. Please refer to her note for patient's presentation, findings, and recommendations. Patient was seen and examined. Denies any new complaints. She cardioverted to normal sinus rhythm. She is going for cardiac cath today. No acute events overnight. Vitals were reviewed -stable Physical Exam: Gen: Comfortable, not pale, not jaundiced, alert oriented x3 CVS:HS I +II, regular, no murmurs RESP: CTA GI: BS present and normal, nontender, no palpable organs EXT:No edema Labs reviewed-slight upward trend of troponins, last troponin was 0.088 Glucose is fairly controlled ASSESSMENT: 1. New onset A. fib with RVR, was on IV Cardizem and amiodarone, converted to normal sinus rhythm 2. Elevated troponins likely secondary to new onset A. fib 3. Hypertension 4. Hyperlipidemia 5. Hypothyroidism now with evidence of hyperthyroidism 6. Type II DM Meds reviewed Plan: Continue on aspirin, statin, beta-sergio Follow-up with cardiology on post-cath recommendations Continue to hold metformin and continue glipizide, resume metformin in 48 to 72 hours Will decrease Synthroid to 75 mcg daily Code Visit Inpatient E&M: 22267 Subs Hosp L2
--- NOTE | 2019-08-08 12:22 | CL.D_ITS ---
Patient Name: KASIA ARMAS Study Date: 08/08/2019 Performing: Javier Jaime MD Ht: 65.35 inches 166 cm : 1945 Wt: 163.14 lbs 74 kg Age: 73 Gender: female BSA: 1.82 PROCEDURE(S) PERFORMED [id number]/LV CLINICAL PROFILE AND INDICATIONS Indications: ACS <= 24 hrs, Suspected CAD, Cardiac Arrythmia Heart Failure: None Stress/Imaging Stress/Image Study Performed: No Angina Classification Anginal Classification w/in 2 Weeks: CCS IV CAD Presentations: Non-STEMI. CONCLUSIONS Elevated Left Ventricular End Diastolic Pressure Normal LV size, wall motion,and systolic function LVEF: by LV gram 65 % Single vessel CAD of the LAD Mitral Valve Insufficiency Mild RECOMMENDATIONS Medical therapy DESCRIPTION OF PROCEDURE The patient arrived to the procedure lab. The risks and benefits of the procedure as well as a full d escription of our services here and current unavailability of surgical backup were fully explained to the patient and/or their significant other prior to the catheterization. The Timeout was completed, verifying the correct patient and procedure. The patient's procedural site was prepped and draped in the usual fashion. Local anesthetic was given subcutaneously to right groin region with Lidocaine 2%. Using a modified Seldinger technique, arterial access was obtained via the right femoral artery, a 4 Fr sheath was inserted Left Coronary Artery selective angiography was performed in multiple views us ing a 4 Fr. JL5 catheter. Right Coronary Artery selective angiography was then performed in multiple views using a 4 Fr. 3DRC catheter. Left Ventriculography was performed in PEREZ projection using a 4 Fr . Pigtail catheter. LV to AO pullback pressures were then recorded.The arterial sheath was pulled and manual compression applied until hemostasis is achieved. CORONARY ANGIOGRAPHY DOMINANCE: Right Dominant LEFT HEART ASSESSMENT Left Ventricular Ejection Fraction: by LV Gram 65 % Normal LV wall motion Elevated Left Ventricular End Diastolic Pressure LVEDP: 17 mmHg LEFT MAIN: Angiographically normal LEFT ANTERIOR DESCENDING ARTERY: PROX LAD: smooth: eccentric: 25 % Stenosis CIRCUMFLEX ARTERY: Angiographically normal RAMUS: Angiographically normal RIGHT CORONARY ARTERY: Angiographically normal VALVE FINDINGS: Normal Aortic Valve function Mitral Valve Insufficiency - Grade 1 AORTIC ROOT: Angiographically normal COMPLICATIONS No Complications PROCEDURE MEDICATIONS Versed 1 mg IV Oxygen: 2 L/min via nasal cannula SUMMARY OF HEMODYNAMIC DATA Time AIR REST ECG 11:35:21 AO 136/43 (70) SA 11:47:01 AO 120/49 (76) 11:54:35 LV 120/-5, 16 12:00:34 LV 122/-6, 17 12:00:41 LV 112/-1, 23 12:01:36 LV 116/0, 16 12:01:42 LVp 119/-3, 18 12:01:48 AOp 126/45 (75) 12:01:53 Signed By Javier Jaime MD On 08/08/2019 12:21:51 Javier Jaime MD
[2019-08-08] MEDS: 0.9% Normal Saline 1,000 ML 75 ML IV (12:47)
[2019-08-08 13:21] LABS: Bedside Glucose 134 mg/dL (70-110)
[2019-08-08 15:50] LABS: Bedside Glucose 208 mg/dL (70-110)
--- NOTE | 2019-08-08 17:25 | NURSING ---
this rn agrees with all charting completed by SN
[2019-08-08] MEDS: Atorvastatin Calcium 20 MG Tablet PO (21:22)
[2019-08-08] MEDS: Losartan Potassium 50 MG Tablet PO (21:22)
[2019-08-08 21:26] LABS: Bedside Glucose 189 mg/dL (70-110)
[2019-08-09] VITALS (9 sets, daily range): BP systolic 111–145; BP diastolic 50–56; PULSE 52–74; RESP 14–20; TEMP 36.7–36.9; O2SAT 95–97
[2019-08-09] MEDS: Enoxaparin 80 MG/0.8 ML Syringe SC (03:58)
[2019-08-09] MEDS: 0.9% NaCl Peripheral Flush Adult/Peds IV (03:59)
--- NOTE | 2019-08-09 05:55 | EKG12_ITS ---
Test Reason : A.M. EKG Blood Pressure : / mmHG Vent. Rate : 057 BPM Atrial Rate : 057 BPM P-R Int : 218 ms QRS Dur : 092 ms QT Int : 464 ms P-R-T Axes : 042 007 -06 degrees QTc Int : 451 ms Sinus bradycardia with 1st degree A-V block Otherwise normal ECG When compared with ECG of 08-AUG-2019 10:59, MANUAL COMPARISON REQUIRED, DATA IS UNCONFIRMED Confirmed by CARMEN CALABRESE, DAVY ([id number]), digital editor SUSY BUCK ([id number]) on 08/15/2019 10:55:35 AM Referred By: Pranav Cross Confirmed By:BRUNA MORALES MD
[2019-08-09 06:24] LABS: Hemoglobin 12.6 g/dL (12.0-15.0)
[2019-08-09 06:39] LABS: Anion Gap 8 (5-15); BUN 11 mg/dL (7-18); Calcium,Total 8.7 mg/dL (8.5-10.1); Chloride 109 mmol/L (98-107); Creatinine, Serum 0.78 mg/dL (0.55-1.02); EST Glomerular Filtration Rate 76 mL/min (>60); Est Glom Filt Rate - Afr Amer 92 mL/min (>60); Estimated Creatinine Clearance 43.74 ml/min; Glucose 137 mg/dL (74-106); Potassium 3.7 mmol/L (3.5-5.1); Sodium Level 143 mmol/L (136-145)
[2019-08-09 07:10] LABS: Bedside Glucose 147 mg/dL (70-110)
--- NOTE | 2019-08-09 09:23 | PCM.PN.CARD ---
Subjectve: The patient is awake and alert. She has no new acute complaints. Objective: Vital Signs Temp Pulse Resp BP Pulse Ox 98.1 F 55 L 17 124/56 H 95 08/09/19 05:00 08/09/19 05:00 08/09/19 05:00 08/09/19 05:00 08/09/19 07:50 Oxygen Flow Rate (L/min) 2 Oxygen Delivery Method Nasal Cannula Weight: 162 lb 14.746 oz Body Mass Index (BMI) 26.6 Finger Stick Blood Glucose 157 Intake and Output for Last 24 Hours 08/07/19 08/08/19 08/09/19 23:59 23:59 23:59 Intake Total 2000. / 173.75 / 173.75 Output Total 800 / 800 350 / 350 Balance 1201.24 / 1201.24 -176.25 / -176.25 General: Awake, Alert, Oriented x 3, Cooperative, No Acute Distress HEENT: Atraumatic, Normocephalic, PERRL, EOMI, Sclera Non Icteric Oral: Moist Mucosa Neck: Supple, Good ROM, No JVD Lungs: Clear to auscultation Cardiovascular: Regular Rhythm, Normal S1, Normal S2 Vascular: Normal Femoral Pulses Abdomen: Bowel Sounds Present, Soft, Non Tender Extremities: No edema Neurological: No Focal Motor or Sensory Deficit Psych/Mental Status: Appropriate 08/09/19 05:54: Sodium 143, Potassium 3.7, Chloride 109 H, Carbon Dioxide 26.0, Anion Gap 8, BUN 11, Creatinine 0.78, Est GFR (MDRD) Af Amer 92, Est GFR (MDRD) Non-Af 76, BUN/Creatinine Ratio 14.0, Glucose 137 H, Calcium 8.7 08/09/19 05:54: Hgb 12.6, Hct 38.0 Rhythm: Sinus rhythm EKG: This rhythm; no acute ECG changes Medical Necessity - Tobacco Use Smoking Status: Former smoker Assessment/Plan 1. CAD The patient has undergone further evaluation with diagnostic cardiac catheterization. Her cardiac catheterization findings suggested minimal/mild CAD. At the present time she will continue risk factor evaluation care as deemed appropriate. 2. Abnormal cardiac enzymes Her abnormal cardiac enzymes appear to be secondary at this time to her atrial fibrillation with rapid ventricular response. At the moment she will continue ongoing evaluation and care for her multiple medical conditions. 3. Atrial fibrillation with rapid ventricular response She will continue beta-sergio therapy. She will be placed on anti-coagulant therapy. At the moment she will remain without antiarrhythmic therapy. Hopefully bring her thyroid issue under better control will help bring her cardiac rhythm under better control as well. 4. Hyperlipidemia She will continue risk factor modification medical management. 5. Hypertension Her blood pressure will be followed. Her medications can be adjusted as deemed appropriate. 6. Diabetes mellitus She will continue under the care of internal medicine. 7. Carotid artery disease She will continue to follow with her other physicians for her carotid artery disease process. Comment: The above was discussed and reviewed with the patient and her family members present. She was agreeable to this approach. This note was generated using a voice recognition system and there may be incorrect words, spelling or punctuation that were not noted when reviewing the office note prior to saving.
--- NOTE | 2019-08-09 09:43 | CASEMGMT ---
Pt to be sent home on Eliquis at this time and med e-scribed to [facility] retail pharm previously. Call to Avani in [facility] pharmacy and she state pt's co-pay is $9.70 at this time. Pt provided with 30 day free Eliquis trial card at this time and updated on co-pay, voices understanding. Marta MENA CM
[2019-08-09] MEDS: APIXABAN 5 MG TABLET PO (09:51)
[2019-08-09] MEDS: glipiZIDE 5 MG Tablet PO (09:51)
[2019-08-09] MEDS: Aspirin 81 MG TAB.CHEW PO (09:51)
--- NOTE | 2019-08-09 10:17 | DCINST_ITS ---
- Discharge Diagnoses Current Active Problems: Current Active and Chronic Problems Atherosclerotic heart disease of [place] coronary artery without angina pectoris (Chronic) LEFT ANTERIOR DESCENDING ARTERY: PROX LAD: smooth: eccentric: 25 % Stenosis per cath 08/08/19 New onset atrial fibrillation (Acute) Abnormal cardiac enzyme level (Acute) You will use the following diet at home:: Cardiac Discharge Activity: Return to Normal Activity Call your doctor if you observe: Fever of 101 or Higher, Dizziness, Chest pain, Increased palpitations (irregular heartbeat) Additional Instructions: You will need TSH repeated in 4-6 weeks by PCP. Allergies/Adverse Reactions: Allergies erythromycin base Allergy (Verified 04/24/19 20:38) Unknown Medications to take at Discharge Aspirin [Aspirin, Baby] 81 mg PO DAILY@0800 04/28/16 Co Q10 200 [Co Q-10] 100 mg PO DAILY 04/28/16 Losartan Potassium [Cozaar] 50 mg PO QHS 04/28/16 Simvastatin [Zocor] 40 mg PO QHS 04/28/16 Atenolol [Tenormin (beta sergio)] 50 mg PO QHS 04/24/19 Metformin HCl 1,000 mg PO BID #20 tab 04/24/19 Glipizide 5 mg PO DAILY 08/08/19 Apixaban [Eliquis] 5 mg PO BID #60 tab 08/09/19 Levothyroxine [Synthroid] 75 mcg PO DAILY #30 tab 08/09/19 The following prescriptions were given: Apixaban [Eliquis] 5 mg PO BID #60 tab Transmission Status: Received by [facility] Levothyroxine [Synthroid] 75 mcg PO DAILY #30 tab Transmission Status: Received by [facility] Primary Care Physician: Flores Castillo DO [Primary Care Provider] - Please follow up with your Primary Care Physician in: 1 Week Test Results: Test results from this visit will be discussed in further detail at your follow- up appointment, if applicable. Please Follow Up With: Javier Jaime MD When: 1-2 Weeks Proposed Discharge Date: 08/09/19
--- NOTE | 2019-08-09 10:38 | NURSING ---
this RN has reviewed and agrees with all documentation completed by Steve CONWAY
--- NOTE | 2019-08-09 11:52 | PHA.DC.MC ---
Pharmacy Service has performed discharge medication reconciliation and counseling for this patient. 1. APIXABAN 5MG PO BID The patient's discharge medication list was reviewed for discrepancies and discrepancies were resolved. Home Medications Aspirin [Aspirin, Baby] 81 mg PO DAILY@0800 04/28/16 Co Q10 200 [Co Q-10] 100 mg PO DAILY 04/28/16 Losartan Potassium [Cozaar] 50 mg PO QHS 04/28/16 Simvastatin [Zocor] 40 mg PO QHS 04/28/16 Atenolol [Tenormin (beta sergio)] 50 mg PO QHS 04/24/19 Metformin HCl 1,000 mg PO BID #20 tab 04/24/19 Glipizide 5 mg PO DAILY 08/08/19 Apixaban [Eliquis] 5 mg PO BID #60 tab 08/09/19 Levothyroxine [Synthroid] 75 mcg PO DAILY #30 tab 08/09/19 The patient was counseled on the following discharge medications and changes in medications for homegoing were reviewed. The Reason for Use, instructions for use, and potential side effects were reviewed for all new medications. The patient's questions regarding all of their medications were answered. The patient was able to verbally demonstrate an understanding of their discharge medications.
--- NOTE | 2019-08-09 12:33 | DS.PCM_ITS ---
<Lizz Buck - Last Filed: 08/09/19 12:40> Discharge Date and Diagnosis Date of Admission: 08/08/19 Date of Discharge: 08/09/19 - Primary Discharge Diagnosis Active and Suspected Problems 1. New onset atrial fibrillation with RVR 2. Abnormal troponin, demand ischemia as a result of #1 3. Mild CAD 4. Hypertension 5. Hyperlipidemia 6. Hypothyroidism 7. Type 2 diabetes mellitus 8. Carotid artery disease - Secondary Discharge Diagnosis Chronic Problems Atherosclerotic heart disease of [place] coronary artery without angina pectoris (Chronic) LEFT ANTERIOR DESCENDING ARTERY: PROX LAD: smooth: eccentric: 25 % Stenosis per cath 08/08/19 Diabetes mellitus, type II (Chronic) HTN (hypertension) (Chronic) Carotid arterial disease (Chronic) Notes last imaging 2-3 years prior noted as moderate disease. Obesity (BMI 30.0-34.9) (Chronic) HLD (hyperlipidemia) (Chronic) History of tobacco use (Chronic) Hospital Course and Treatment Imaging Results: Diagnostic Data Chest X-Ray 08/08/19 01:37 IMPRESSION: Degenerative changes, as described above. No demonstrated acute cardiopulmonary process. Electronically Signed: Dawn Blackwood, at 1:54 EDT Tel , Service support , Dr. Jaime- Cardiology Operations: None Procedures: 2-D Echocardiogram, Cardiac catheterization Summary of Care Provided: The patient is a 73 year old F admitted 08/08/2019 due to palpitations. 1. New onset atrial fibrillation with RVR- cardiology consulted during admission. Echocardiogram demonstrated an EF of 65%, mild mitral valve insufficiency, mild tricuspid valve insufficiency. Placed on IV Cardizem and IV amiodarone. Converted to sinus rhythm. Patient underwent cardiac catheterization which showed mild CAD, nonobstructive coronary arteries. Patient remained sinus rhythm. Continue home atenolol regimen. Added on Eliquis 5 mg twice daily. Follow-up with cardiology in 1 week. 2. Abnormal troponin- suspected secondary to #1. Cardiac catheterization with mild CAD of the LAD. Continue medical management with aspirin, statin, beta- sergio. 3. Hypertension-stable, continue atenolol, losartan regimen. 4. Hyperlipidemia-continue statin regimen. 5. Hypothyroidism-TSH 0.34. Free T4 1.5. Synthroid held on admission. Reduce Synthroid to 75 mcg at discharge. Recommend repeat TSH in 4 to 6 weeks by primary care provider. 6. Type 2 diabetes mellitus-continue home oral regimen. 7. Carotid artery disease-continue outpatient follow-up. Continue aspirin, statin. General: Alert, Oriented x3, Cooperative HEENT: Atraumatic, PERRLA, EOMI, Normocephalic Neck: Supple, No JVD, Negative Carotid Bruits Lungs: Clear to auscultation, Normal air movement Cardiovascular: Regular rate, Regular Rhythm, Normal S1, Normal S2, No murmurs Abdomen: Bowel Sounds Present, Soft, Non Tender, Non-Distended Extremities: No clubbing, No cyanosis, No edema, Capillary Refill Less than 3 Seconds Skin: No rashes, No breakdown Musculoskeletal: No Tenderness to Palpation of Joints or Extremities Neurological: Cranial nerves II-XII grossly intact, Neuro grossly intact Psych/Mental Status: Normal Affect, Appropriate Patient seen and examined prior to discharge. Physical assessment as noted above. Patient is stable for discharge with follow up recommendations as noted above. This patient was seen by BELEN Thornton under the supervision of Dr. Da Silva. - Physical Exam Vital Signs Temp Pulse Resp BP Pulse Ox 98.1 F 74 14 145/50 H 96 08/09/19 10:05 08/09/19 10:05 08/09/19 10:05 08/09/19 10:05 08/09/19 10:05 Oxygen Flow Rate (L/min) 2 Oxygen Delivery Method Room Air Weight: 162 lb 14.746 oz Body Mass Index (BMI) 26.6 Finger Stick Blood Glucose 157 Intake and Output for Last 24 Hours 08/07/19 08/08/19 08/09/19 23:59 23:59 23:59 Intake Total / 593.75 / 593.75 Output Total 800 / 800 350 / 350 Balance 1201.24 / 1201.24 243.75 / 243.75 Laboratory Tests Past 24 Hrs 08/09/19 08/09/19 05:54 05:54 Hgb 12.6 Hct 38.0 Sodium 143 Potassium 3.7 Chloride 109 H Carbon Dioxide 26.0 Anion Gap 8 BUN 11 Creatinine 0.78 Estim Creat Clear Calc 43.74 Est GFR (MDRD) Af Amer 92 Est GFR (MDRD) Non-Af 76 BUN/Creatinine Ratio 14.0 Glucose 137 H Calcium 8.7 POC Glucose 08/09/19 08/08/19 08/08/19 06:56 21:20 15:40 POC Glucose 147 H 189 H 208 H 08/08/19 13:05 POC Glucose 134 H Discharge Diet: Low fat/ Low Cholesterol Discharge Activity: Return to Normal Activity Call your doctor if you observe: Fever of 101 or Higher, Dizziness, Chest pain, Increased palpitations (irregular heartbeat) Home Medications: Medications to take at Discharge Aspirin [Aspirin, Baby] 81 mg PO DAILY@0800 04/28/16 Co Q10 200 [Co Q-10] 100 mg PO DAILY 04/28/16 Losartan Potassium [Cozaar] 50 mg PO QHS 04/28/16 Simvastatin [Zocor] 40 mg PO QHS 04/28/16 Atenolol [Tenormin (beta sergio)] 50 mg PO QHS 04/24/19 Metformin HCl 1,000 mg PO BID #20 tab 04/24/19 Glipizide 5 mg PO DAILY 08/08/19 Apixaban [Eliquis] 5 mg PO BID #60 tab 08/09/19 Levothyroxine [Synthroid] 75 mcg PO DAILY #30 tab 08/09/19 Following Prescrptions Were Given to Patient: Apixaban [Eliquis] 5 mg PO BID #60 tab Transmission Status: Received by [facility] Levothyroxine [Synthroid] 75 mcg PO DAILY #30 tab Transmission Status: Received by [facility] Primary Care Physician: Flores Castillo DO [Primary Care Provider] - Please follow up with your Primary Care Physician in: 1 Week Please Follow Up With: Javier Jaime MD When: 1-2 Weeks Disposition: Home Minutes spent on discharge:: 35 Patient Condition:: Stable Medical Necessity - Tobacco Use Smoking Status: Former smoker Meaningful Use Info Meaningful Use Diagnoses (Choose all that apply): None applicable <AvinashGreenwood - Last Filed: 08/09/19 15:41> Discharge Date and Diagnosis - Secondary Discharge Diagnosis Chronic Problems Atherosclerotic heart disease of [place] coronary artery without angina pectoris (Chronic) LEFT ANTERIOR DESCENDING ARTERY: PROX LAD: smooth: eccentric: 25 % Stenosis per cath 08/08/19 Diabetes mellitus, type II (Chronic) HTN (hypertension) (Chronic) Carotid arterial disease (Chronic) Notes last imaging 2-3 years prior noted as moderate disease. Obesity (BMI 30.0-34.9) (Chronic) HLD (hyperlipidemia) (Chronic) History of tobacco use (Chronic) Hospital Course and Treatment Summary of Care Provided: This patient was seen in conjunction with Lizz Buck NP. I have independently interviewed and examined the patient and reviewed pertinent historical, laboratory, and other data. Please refer to her note for patient's presentation, findings, and recommendations. 83-year-old female past medical history of hypertension, hyperlipidemia, hypothyroidism who presented to the emergency department with palpitations that started 1 hour prior to come to the ED. Her symptoms will get up from sleep and was associated with chest discomfort, nausea, lightheadedness and shortness of breath. Patient called the EMS. She was found to be in A. fib with RVR. In the emergency room, she received Cardizem bolus and was started on Cardizem drip. Patient converted to normal sinus rhythm on the telemetry floor. Her troponins were also trended and was slightly elevated. She underwent cardiac cath test that showed clean coronaries. On the day of discharge, patient was seen and examined. She denied any new complaints. Physical Exam: Gen: Comfortable, not pale, not jaundiced, alert oriented x3 CVS:HS I +II, regular, no murmurs RESP: CTA GI: BS present and normal, nontender, no palpable organs EXT:No edema ASSESSMENT: 1. New onset A. fib with RVR 2. Elevated troponins likely secondary to new onset A. fib 3. Hypertension 4. Hyperlipidemia 5. Hypothyroidism now with evidence of hyperthyroidism 6. Type II DM - Physical Exam Vital Signs Temp Pulse Resp BP Pulse Ox 98.1 F 74 14 145/50 H 96 08/09/19 10:05 08/09/19 10:05 08/09/19 10:05 08/09/19 10:05 08/09/19 10:05 Oxygen Flow Rate (L/min) 2 Oxygen Delivery Method Room Air Weight: 73.9 kg Body Mass Index (BMI) 26.6 Finger Stick Blood Glucose 157 Intake and Output for Last 24 Hours 08/07/19 08/08/19 08/09/19 23:59 23:59 23:59 Intake Total / 2001.24 593.75 / 593.75 Output Total 800 / 800 350 / 350 Balance 1201.24 / 1201.24 243.75 / 243.75 Laboratory Tests Past 24 Hrs 08/09/19 08/09/19 05:54 05:54 Hgb 12.6 Hct 38.0 Sodium 143 Potassium 3.7 Chloride 109 H Carbon Dioxide 26.0 Anion Gap 8 BUN 11 Creatinine 0.78 Estim Creat Clear Calc 43.74 Est GFR (MDRD) Af Amer 92 Est GFR (MDRD) Non-Af 76 BUN/Creatinine Ratio 14.0 Glucose 137 H Calcium 8.7 POC Glucose 08/09/19 08/08/19 08/08/19 06:56 21:20 15:40 POC Glucose 147 H 189 H 208 H Code Visit Inpatient E&M: [id number] Disch Hosp
== END 2019-08-09 12:47 | disposition home or self-care (01) | DRG 287 ==
LOC: ED 02:05 → PCU 02:57
PROVIDERS: Internal Medicine Cardiovascular Disease; Admitting Provider Hospitalist; Emergency Provider Emergency Medicine; Family Provider Family Medicine; PCP Family Medicine; Referring Provider Hospitalist; Visit Provider Internal Medicine
DX: I48.91 Unspecified atrial fibrillation (principal); I24.8 Other forms of acute ischemic heart disease; E78.5 Hyperlipidemia, unspecified; E03.9 Hypothyroidism, unspecified; I10 Essential (primary) hypertension; E11.9 Type 2 diabetes mellitus without complications; I25.10 Atherosclerotic heart disease of native coronary artery without angina pectoris; Z87.891 Personal history of nicotine dependence; Z79.84 Long term (current) use of oral hypoglycemic drugs; I77.9 Disorder of arteries and arterioles, unspecified
CPT/HCPCS: 36415; 71045; 80048; 80061; 82962; 83735; 84439; 84443; 84484; 85014; 85018; 85025; 85610; 85730; 93005; 93306; 93458; 99152; 99153; 99285; J7030; A4216; C1769; C1894; Q9967

== ENCOUNTER → 2020-08-30 | Outpatient (CLI) | payer MEDICARE, SELFPAY ==
[2020-08-22 16:08] VITALS: BMI 30.6
--- NOTE | 2020-08-30 09:43 | CDU_ITS ---
Reason For Study: carotid artery stenosis Rt. Velocities/BP Lt. Velocities/BP Prox CCA 63.0/12.1 cm/sec. Prox CCA 90.4/9.1 cm/sec. Mid CCA 74.7/16.0 cm/sec. Mid CCA 75.0/14.6 cm/sec. Dist CCA 51.3/12.1 cm/sec. Dist CCA 80.5/11.3 cm/sec. Prox ICA 57.5/14.6 cm/sec. Prox ICA 79.4/17.9 cm/sec. Mid ICA 56.4/15.7 cm/sec. Mid ICA 64.0/12.4 cm/sec. Dist ICA 97.1/26.7 cm/sec. Dist ICA 89.3/22.3 cm/sec. Rt. ICA/CCA = 1.3. Lt. ICA/CCA = 1.2. Prox ECA 87.1/6.9 cm/sec. Prox ECA 94.8/6.9 cm/sec. Rt. Vert. 48.7/11.3 cm/sec. Lt. Vert. 36.9/9.0 cm/sec. Right Extracranial There is intimal thickening but no significant atherosclerotic plaque noted in the right common carotid artery. There is heterogeneous, irregular atherosclerotic plaque noted in the right internal carotid artery. There is intimal thickening but no significant atherosclerotic plaque noted in the right external carotid artery. Antegrade flow is noted in the right vertebral artery. Left Extracranial There is intimal thickening but no significant atherosclerotic plaque noted in the left common carotid artery. There is heterogeneous, irregular atherosclerotic plaque noted in the left internal carotid artery. There is heterogeneous, irregular atherosclerotic plaque noted in the left external carotid artery. Antegrade flow is noted in the left vertebral artery. Procedure Carotid Duplex [id number]. This is a Carotid Duplex examination using B-mode, color flow and specral Doppler. The exam was diagnostic. Exam performed in department. Interpretation Summary Mild (<50%) stenosis right extracranial internal carotid. Mild (<50%) stenosis left extracranial internal carotid. Flow within the vertebral arteries is antegrade bilaterally. Ordering Physician: Javier Jaime Performed By: Valdemar Lopez RVT
== END | disposition home or self-care (01) ==
LOC: CVS 09:43
PROVIDERS: PCP Family Medicine; Referring Provider Internal Medicine Cardiovascular Disease; Visit Provider Internal Medicine Cardiovascular Disease
DX: I65.23 Occlusion and stenosis of bilateral carotid arteries (principal)
CPT/HCPCS: 93880

== ENCOUNTER 2021-05-21 12:51 | Emergency (ER) | payer MEDICARE, SELFPAY ==
[2020-08-22 16:08] VITALS: BMI 30.6
[2021-05-21 12:51] VITALS: BP 177/62; PULSE 74; RESP 12; TEMP 36.8; O2SAT 99; BMI 30.5
--- NOTE | 2021-05-21 13:03 | EKG12_ITS ---
Test Reason : CP Blood Pressure : / mmHG Vent. Rate : 075 BPM Atrial Rate : 075 BPM P-R Int : 182 ms QRS Dur : 078 ms QT Int : 372 ms P-R-T Axes : 038 -10 -03 degrees QTc Int : 415 ms Normal sinus rhythm Cannot rule out Anterior infarct , age undetermined Abnormal ECG Confirmed by CARMEN CALABRESE, DAVY ([id number]), index editor ALEXX WEBSTER ([id number]) on 05/23/2021 9:23:24 AM Referred By: PADMINI/RAHEEM Confirmed By:BRUNA MORALES MD
--- NOTE | 2021-05-21 13:03 | ED.VIS.CHEST ---
HPI History of Present Illness Chief Complaint: Chest Pain Informant: patient Onset/Context/Timing Onset: Today and Hours (1) Activity at onset: gradual Timing: Continuous Quality: Positive for Aching Location: Substernal Worsened By: Nothing Relieved By: Nothing Associated Symptoms: Positive for Nausea, Diaphoresis, Cough and Lightheadedness; Negative for Vomiting, Dyspnea, Fever, Acid Reflux and Palpitations Narrative Narrative: Patient presents with chest pain that began approximately 1 hour prior to arrival. Patient states the pain is over the substernal area. Patient states she was having some nausea yesterday. Patient states she is also having some lightheadedness over the past couple days. Patient states she has been breaking out to a sweat with the lightheadedness. Patient denies any shortness of breath. Patient denies any vomiting. Patient denies any palpitations. Patient states she does have a history of atrial fibrillation. CVD Risk Factors: Positive for Hypertension and Diabetes; Negative for Family History 1' </=55 and Smoking PE Risk Factors: Negative for Recent Travel/Surgery, Recent Immobilization, Prior DVT or PE, Cancer and OCP + Smoking + >/=35 PFSH [facility] Medical History (Updated 05/21/21 @ 15:[address] Garett Richardson, DO) Abnormal cardiac enzyme level Atherosclerotic heart disease of [place] coronary artery without angina pectoris Bilateral carotid artery stenosis Bilateral carotid artery stenosis Carotid arterial disease Chest pain Diabetes mellitus, type II Essential hypertension History of tobacco use HLD (hyperlipidemia) New onset atrial fibrillation Obesity (BMI 30.0-34.9) Paroxysmal atrial fibrillation Home Medications coenzyme Q10 200 mg PO DAILY 04/28/16 [History Last Taken Unknown] simvastatin 40 mg PO QHS 04/28/16 [History Last Taken Unknown] atenolol 50 mg PO QHS 04/24/19 [History Last Taken Unknown] metformin 1,000 mg PO BID #20 tab 04/24/19 [Rx Last Taken Unknown] glipizide 5 mg PO BID 08/08/19 [History Last Taken Unknown] levothyroxine 75 mcg PO DAILY #30 tab 08/09/19 [Rx Last Taken Unknown] losartan 25 mg tablet 25 mg PO DAILY 08/22/20 [History Last Taken Unknown] warfarin 2.5 mg tablet 2.5 mg PO .COMPLEX 08/22/20 [History Last Taken Unknown] Allergy/AdvReac Type Severity Reaction Status Date / Time erythromycin base Allergy Unknown Verified 08/22/20 16:08 Surgical History History of lumpectomy of right breast Social History Smoking Status: Former smoker alcohol intake: never substance use type: does not use ROS ROS ED Constitutional Constitutional ED: Denies chills or fever(s) Eyes Eyes: Reports blurry vision; Denies diplopia ENT ENT ED: Denies rhinorrhea or sore throat Cardiovascular Cardiovascular: Reports chest pain; Denies palpitations Respiratory/Chest Respiratory/Chest: Denies cough or dyspnea Gastrointestinal Gastrointestinal: Reports nausea; Denies abdominal pain or vomiting Genitourinary Genitourinary ED: Denies dysuria or hematuria Musculoskeletal Musculoskeletal: Denies back pain or neck pain Integumentary Denies abscess or rash Neurologic Neurologic: Denies headache(s) or weakness Allergic/Immunologic Allergic/Immunologic ED: Denies mouth swelling or urticaria EXAM Physical Exam Const Vital Signs: 05/21/21 12:51 05/21/21 12:54 05/21/21 13:05 Temperature 98.2 F Temperature Source Temporal Pulse Rate 74 Respiratory Rate 12 Respiratory Effort Normal Non-Labored Blood Pressure 177/62 H Blood Pressure Mean 100 Pulse Ox 99 100 Oxygen Delivery Method Room Air Room Air 05/21/21 14:17 Temperature Temperature Source Pulse Rate 60 Respiratory Rate 14 Respiratory Effort Blood Pressure 165/72 H Blood Pressure Mean 103 Pulse Ox 99 Oxygen Delivery Method Room Air Positive well nourished and well developed General Appearance ED: well developed HEENT normocephalic and atraumatic Eyes PERRL and EOMs intact bilaterally Neck supple and no JVD Chest Wall palpation of chest normal Resp normal respiratory effort and clear to auscultation bilaterally Effort and Inspection: Negative for respiratory distress Cardio regular rate, regular rhythm and no murmurs GI normal to inspection, nondistended, normoactive bowel sounds, soft to palpation, non-tender and non-distended Extremity normal to inspection General Extremety ED: Negative for edema or tenderness General Extremity: Negative for edema Neuro oriented x3, CN's II-XII intact bilaterally and no sensory deficits noted Sensorium / Orientation: awake and alert Motor Exam: strength 5/5 throughout Psych mental status grossly normal Heart Score History: Slightly/Non-Suspicious ECG: Normal Age: >/= 65 years Risk Factors: 1 or 2 Risk Factors Troponin: </= Normal Limit Score: 3 MDM MDM MDM Narrative Medical decision making narrative: Patient was given aspirin here. EKG was obtained. On my interpretation, it showed a normal sinus rhythm with a rate of 75. CT interval, QRS interval, and QTc intervals were all normal. [place] was normal. There are no acute ST or T wave changes. Portable 1 view chest x-ray was obtained. On my interpretation, lung phillip are clear. There is normal cardiac silhouette. Bony thorax is normal. There is no acute process noted. Radiologist also interpreted the x-ray and agrees. CBC and basic metabolic profile were obtained and were within normal limits. Initial high-sensitivity troponin was less than 3.0. Since the patient's symptoms began approximate 1 hour prior to arrival, a delta troponin was obtained. This was also less than 3.0. Patient has a HEART score of 3. Patient was advised that this is low risk for acute cardiac event. Patient was instructed to follow-up with her primary care physician in 5 to 7 days. Patient was instructed return if worse in any way. Patient understood and was agreeable with the plan. All questions were answered. Lab Data Attestation: I reviewed the patient's lab results. Labs: Laboratory Results - last 24 hr 05/21/21 05/21/21 05/21/21 12:58 12:58 14:58 WBC 7.8 RBC 4.73 Hgb 13.2 Hct 39.4 MCV 83.3 MCH 27.9 MCHC 33.5 RDW Std Deviation 39.3 RDW Coeff of Jitendra 13.0 Plt Count 225 MPV 11.3 Immature Gran % (Auto) 1.000 H Neut % (Auto) 76.0 H Lymph % (Auto) 14.8 L [place] % (Auto) 6.4 Eos % (Auto) 1.3 Baso % (Auto) 0.5 Absolute Neuts (auto) 6.0 Absolute Lymphs (auto) 1.16 Nucleated RBC % 0 Sodium 134 L Potassium 3.9 Chloride 101 Carbon Dioxide 28.0 Anion Gap 5 BUN 12 Creatinine 1.06 H Estim Creat Clear Calc 39.99 Est GFR (MDRD) Af Amer 65 Est GFR (MDRD) Non-Af 53 L BUN/Creatinine Ratio 11.3 Glucose 251 H Calcium 9.8 Troponin I High Sens < 3.0 L < 3.0 L Radiography Chest X-Ray - ED: 1 View, Read by ED Physician, Read by Radiologist and Normal Diagnostic Testing: Radiology Impression Chest X-Ray 05/21/21 13:10 IMPRESSION: No acute abnormality is seen. Electronically Signed: Adrian Norman MD at 13:28 EDT , Service support , EKG Initial EKG: Attestation: I personally reviewed and interpreted this EKG as follows: Interpretation: Sinus Rhythm (75) and No Acute Injury Pattern Prior EKG tracings: available for review Prior: Unchanged (08/30/2019) Discharge Plan Triage Chief Complaint: Chest Pain ED Provider: Garett Richardson Dx/Rx/DC Orders Clinical Impression: Chest pain Instructions: ED Chest Pain, Uncertain Cause Prescriptions: No Action losartan 25 mg tablet 25 mg PO DAILY RF: 0 warfarin 2.5 mg tablet 2.5 mg PO .COMPLEX RF: 0 simvastatin 40 MG tablet 40 mg PO QHS RF: 0 coenzyme Q10 100 MG capsule 200 mg PO DAILY RF: 0 atenolol 50 MG tablet 50 mg PO QHS RF: 0 metformin 1,000 MG tablet 1,000 mg PO BID Qty: 20 RF: 0 glipizide 5 MG tablet 5 mg PO BID RF: 0 levothyroxine 75 MCG tablet 75 mcg PO DAILY Qty: 30 RF: 0 Primary Care Provider: Flores Castillo Referrals: Flores Castillo DO [Primary Care Provider] - 5-7 Days Disposition Disposition: Home, Self Care
[2021-05-21 13:05] VITALS: O2SAT 100
[2021-05-21] MEDS: Aspirin 81 MG TAB.CHEW 324 MG PO (13:08)
[2021-05-21] MEDS: Nitroglycerin SL (ED/IMG/CATH) 0.4 MG TABLET SL (13:09)
--- NOTE | 2021-05-21 13:10 | RAD_ITS ---
STUDY: X-RAY CHEST REASON FOR EXAM: Female, 75 years old. Chest pain TECHNIQUE: Single AP portable view of the chest. COMPARISON: Comparison is made with prior study dated 08/08/2019. FINDINGS: EKG electrodes are seen. The lungs are clear and expanded. There is no demonstrated pleural abnormality. Normal size heart. Normal mediastinum and valencia. Normal visualized pulmonary arteries. Normal visualized aortic arch and descending thoracic aorta. There are diffuse degenerative changes of the visualized thoracic spine. Normal visualized ribs, clavicles, and shoulders. There is no demonstrated abnormality of the visualized soft tissue structures of the upper abdomen. RAD/Chest 1 View (Portable) IMPRESSION: No acute abnormality is seen. Electronically Signed: Adrian Norman MD at 13:28 EDT , Service support ,
[2021-05-21 13:28] LABS: Absolute Lymphocyte Count 1.16 X10^3/uL (0.83-4.51); Basophil# 0.04 X10^3/uL; Basophil% 0.5 % (0-1); Eosinophils% 1.3 % (0-5); Hematocrit 39.4 % (37-47); Hemoglobin 13.2 g/dL (12.0-15.0); Lymphocyte # 1.16 X10^3/ul (0.83-4.51); Lymphocyte % 14.8 % (19-41); Mean Corp Hgb Conc 33.5 g/dL (32-36); Mean Corpuscular Hgb 27.9 pg (27.0-32.0); Mean Corpuscular Volume 83.3 fL (81-99); Mean Platelet Vol. 11.3 fl (6.2-12.0); Monocyte% 6.4 % (0-10); NRBC Flagged by Analyzer 0 % (0-5); Neutrophil # 5.96 X10^3/uL (2.7-7.7); Platelet Count 225 K/mm3 (150-450); RBC Distribution Width SD 39.3 fl (35.1-43.9); Red Blood Count 4.73 M/mm3 (4.2-5.4); White Blood Count 7.8 K/mm3 (4.4-11.0)
[2021-05-21 13:46] LABS: Anion Gap 5 (5-15); BUN 12 mg/dL (7-18); BUN/Creat Ratio 11.3 RATIO (10-20); Calcium,Total 9.8 mg/dL (8.5-10.1); Chloride 101 mmol/L (98-107); Creatinine, Serum 1.06 mg/dL (0.55-1.02); EST Glomerular Filtration Rate 53 mL/min (>60); Est Glom Filt Rate - Afr Amer 65 mL/min (>60); Estimated Creatinine Clearance 39.99 ml/min; Glucose 251 mg/dL (74-106); Potassium 3.9 mmol/L (3.5-5.1); Sodium Level 134 mmol/L (136-145); Troponin-I HS < 3.0 pg/mL (3.0-53.7)
[2021-05-21 14:17] VITALS: BP 165/72; PULSE 60; RESP 14; O2SAT 99
[2021-05-21 15:35] LABS: Troponin-I HS < 3.0 pg/mL (3.0-53.7)
[2021-05-21 16:02] VITALS: BP 176/57; PULSE 59; RESP 15; O2SAT 96
== END 2021-05-21 16:03 | disposition home or self-care (01) ==
PROVIDERS: Emergency Provider Emergency Medicine; PCP Family Medicine
DX: R07.9 Chest pain, unspecified (principal); I25.10 Atherosclerotic heart disease of native coronary artery without angina pectoris; E11.9 Type 2 diabetes mellitus without complications; I10 Essential (primary) hypertension; E78.5 Hyperlipidemia, unspecified; E66.9 Obesity, unspecified; I48.0 Paroxysmal atrial fibrillation; Z79.01 Long term (current) use of anticoagulants; Z79.84 Long term (current) use of oral hypoglycemic drugs; Z79.899 Other long term (current) drug therapy; Z87.891 Personal history of nicotine dependence
CPT/HCPCS: 71045; 80048; 84484; 85025; 93005; 99284; A4216

== ENCOUNTER → 2023-06-23 | Outpatient (CLI) | payer MEDICARE, SELFPAY ==
[2023-06-23 10:27] LABS: Absolute Lymphocyte Count 1.33 X10^3/uL (0.83-4.51); Absolute Neutrophil Count 4.7 X10^3/uL (2.0-7.7); Basophil# 0.04 X10^3/uL; Basophil% 0.6 % (0-1); Eosinophil# 0.14 X10^3/uL; Hematocrit 38.1 % (37-47); Hemoglobin 12.2 g/dL (12.0-15.0); Lymphocyte # 1.33 X10^3/ul (0.83-4.51); Lymphocyte % 19.2 % (19-41); Mean Corpuscular Hgb 27.7 pg (27.0-32.0); Mean Corpuscular Volume 86.6 fL (81-99); Mean Platelet Vol. 11.5 fl (6.2-12.0); Monocyte# 0.65 X10^3/uL; Monocyte% 9.4 % (0-10); NRBC Flagged by Analyzer 0 % (0-5); Neutrophil # 4.72 X10^3/uL (2.7-7.7); Neutrophil % 68.1 % (47-70); Platelet Count 228 K/mm3 (150-450); RBC Distribution Width CV 12.9 % (11.6-14.6); RBC Distribution Width SD 40.4 fl (35.1-43.9); White Blood Count 6.9 K/mm3 (4.4-11.0)
[2023-06-23 11:02] LABS: AST(SGOT) 16 U/L (15-37); Alanine Aminotransfer ALT/SGPT 20 U/L (13-56); Albumin, Serum 3.6 g/dL (3.2-5.0); Alkaline Phosphatase 66 U/L (45-117); Anion Gap 5 (5-15); BUN 19 mg/dL (7-18); BUN/Creat Ratio 18.4 RATIO (10-20); Calcium,Total 9.4 mg/dL (8.5-10.1); Chloride 105 mmol/L (98-107); Cholesterol 171 mg/dL (200); Creatinine, Serum 1.03 mg/dL (0.55-1.02); EST Glomerular Filtration Rate 55 mL/min (>60); Est Glom Filt Rate - Afr Amer 66 mL/min (>60); Free T3 2.1 pg/mL (2.18-3.98); Globulin 3.7 g/dL (2.2-4.2); Glucose 154 mg/dL (74-106); High Density Lipoprotein 61 mg/dL; Microalbumin,Random Urine 49.1 mg/L (NO RANGE EST.); Microalbumin:Creatinine Ratio 83.8 mg/g CRE (<30 mg/g CRE); Potassium 4.2 mmol/L (3.5-5.1); Protein, Total 7.3 g/dL (6.4-8.2); Sodium Level 139 mmol/L (136-145); T4 Free Direct 1.54 ng/dL (0.76-1.46); Thyroid Stim Hormone (TSH) 0.75 uIU/mL (0.358-3.74); Triglycerides 183 mg/dL; Very Low Density Lipoprotein 37 mg/dL (5-40)
== END | disposition home or self-care (01) ==
PROVIDERS: PCP Family Medicine; Referring Provider Family Medicine; Visit Provider Family Medicine
DX: I10 Essential (primary) hypertension (principal); E11.9 Type 2 diabetes mellitus without complications; E03.9 Hypothyroidism, unspecified
CPT/HCPCS: 36415; 80053; 80061; 82043; 82570; 84439; 84443; 84481; 85025

== ENCOUNTER → 2024-07-26 | Outpatient (CLI) | payer MEDICARE, SELFPAY ==
[2024-07-26 11:26] LABS: Absolute Lymphocyte Count 1.06 X10^3/uL (0.83-4.51); Absolute Neutrophil Count 4.6 X10^3/uL (2.0-7.7); Basophil# 0.03 X10^3/uL; Basophil% 0.5 % (0-1); Eosinophil# 0.15 X10^3/uL; Eosinophils% 2.4 % (0-5); Hematocrit 34.9 % (37-47); Hemoglobin 11.3 g/dL (12.0-15.0); Lymphocyte # 1.06 X10^3/ul (0.83-4.51); Lymphocyte % 16.7 % (19-41); Mean Corp Hgb Conc 32.4 g/dL (32-36); Mean Corpuscular Hgb 27.2 pg (27.0-32.0); Mean Corpuscular Volume 83.9 fL (81-99); Mean Platelet Vol. 11.6 fl (6.2-12.0); Monocyte# 0.43 X10^3/uL; Monocyte% 6.8 % (0-10); NRBC Flagged by Analyzer 0 % (0-5); Neutrophil # 4.63 X10^3/uL (2.7-7.7); Platelet Count 197 K/mm3 (150-450); RBC Distribution Width CV 13.4 % (11.6-14.6); RBC Distribution Width SD 41.3 fl (35.1-43.9); Red Blood Count 4.16 M/mm3 (4.2-5.4); White Blood Count 6.3 K/mm3 (4.4-11.0)
[2024-07-26 12:02] LABS: AST(SGOT) 14 U/L (15-37); Alanine Aminotransfer ALT/SGPT 17 U/L (13-56); Albumin, Serum 3.5 g/dL (3.2-5.0); Alkaline Phosphatase 74 U/L (45-117); Anion Gap 10 (5-15); BUN 20 mg/dL (7-18); BUN/Creat Ratio 17.7 RATIO (10-20); Calcium,Total 9.7 mg/dL (8.5-10.1); Chloride 103 mmol/L (98-107); Cholesterol 189 mg/dL (200); Creatinine, Serum 1.13 mg/dL (0.55-1.02); EST Glomerular Filtration Rate 49 mL/min (>60); Est Glom Filt Rate - Afr Amer 60 mL/min (>60); Free T3 1.8 pg/mL (2.18-3.98); Globulin 3.6 g/dL (2.2-4.2); Glucose 173 mg/dL (74-106); High Density Lipoprotein 70 mg/dL; Potassium 3.9 mmol/L (3.5-5.1); Protein, Total 7.1 g/dL (6.4-8.2); Sodium Level 139 mmol/L (136-145); Triglycerides 220 mg/dL; Very Low Density Lipoprotein 44 mg/dL (5-40)
[2024-07-26 12:20] LABS: Microalbumin:Creatinine Ratio 634.8 mg/g CRE (<30 mg/g CRE)
== END | disposition home or self-care (01) ==
PROVIDERS: PCP Family Medicine; Referring Provider Family Medicine; Visit Provider Family Medicine
DX: I10 Essential (primary) hypertension (principal); E11.9 Type 2 diabetes mellitus without complications; E03.9 Hypothyroidism, unspecified
CPT/HCPCS: 36415; 80053; 80061; 82043; 82570; 84439; 84443; 84481; 85025

== ENCOUNTER 2024-08-12 03:39 | Observation (INO) | payer MEDICARE, SELFPAY ==
[2024-08-12] VITALS (9 sets, daily range): BP systolic 142–174; BP diastolic 50–63; PULSE 64–126; RESP 12–19; TEMP 36.6–36.8; O2SAT 91–99; BMI 30.3; BMI 29.7
--- NOTE | 2024-08-12 04:14 | EKG12_ITS ---
Test Reason : Blood Pressure : / mmHG Vent. Rate : 077 BPM Atrial Rate : 077 BPM P-R Int : 178 ms QRS Dur : 074 ms QT Int : 394 ms P-R-T Axes : -04 -11 007 degrees QTc Int : 445 ms Normal sinus rhythm Minimal voltage criteria for LVH, may be normal variant ( R in aVL ) Borderline ECG Confirmed by ALF CALABRESE, EL ([id number]), editor in chief DEBBIE LAZARO ([id number]) on 08/15/2024 10:03:24 AM Referred By: Confirmed By:EL MILNER MD
--- NOTE | 2024-08-12 04:16 | RAD_ITS ---
INDICATION: chest pain EXAMINATION/TECHNIQUE: X-RAY - XR Chest 1 View COMPARISON: May 21, 2021. FINDINGS: LINES/DEVICES: None. LUNGS: No consolidation, edema or effusion. No pneumothorax. MEDIASTINUM AND CARDIOVASCULAR STRUCTURES: Cardiac silhouette not enlarged. BONES AND SOFT TISSUES: Unremarkable. RAD/Chest 1 View (Portable) IMPRESSION: No radiographic evidence of acute cardiopulmonary disease. Electronically Signed: Constantino Zavala MD at 6:09 EDT ,
--- NOTE | 2024-08-12 04:18 | ED.VIS.CHEST ---
HPI History of Present Illness Chief Complaint: Chest Pain Narrative Narrative: Chief complaint and HPI: Chest pressure. 78-year-old female with history of DM 2, HTN, HLD, A-fib on warfarin presents for evaluation of chest pressure. Patient states at 1 AM she was sitting at the computer when she had an episode of near syncope. She states her vision became tunneled and felt like she was going to pass out. She states this sometimes happens when her sugar is low. She checked her blood sugar and it was 177. She states this is about her baseline. Patient states she checks her blood pressure at the same time and SBP was in the 190s. She states this is high for her. Patient states she then went to bed. She woke up shortly later with some midsternal chest pressure. Did not radiate to the jaw. A little down left arm. And denies any shortness of breath. Patient states she checked her blood pressure and it was in the 180s. She called EMS. She took 325 mg of aspirin prior to EMS arrival. She received 1 nitro via EMS without improvement in her symptoms. Patient currently is denying any chest pressure. Patient denies any lightheadedness, trauma, weakness, numbness/tingling, shortness of breath, abdominal pain, nausea, vomiting, dysuria. Denies any bilateral lower extremity swelling or pain. Review of systems: See HPI Medications: As listed on the chart Allergies: As listed on the chart PFSH: Per chart Vital signs: As listed on the chart. Reviewed. Physical exam: Gen: A&O x3, NAD Head: Normocephalic, atraumatic Eyes: No sclera icterus, conjunctiva clear ENT: Moist mucous membranes Neck: Trachea midline, No JVD CV: RRR, no murmurs, no peripheral edema Resp: Lungs CTA BL, no w/r/c GI: Abd soft, non-distended, non-tender, no r/r/g Musc: Full ROM, no deformity Skin: Warm, dry Neuro: Alert, oriented, grossly intact, sensation intact Psych: Cooperative, appropriate mood and affect PFSH PFSH Medical History Valvular heart disease Bilateral carotid artery stenosis Essential hypertension Paroxysmal atrial fibrillation Atherosclerotic heart disease of [place] coronary artery without angina pectoris Abnormal cardiac enzyme level Diabetes mellitus, type II Obesity (BMI 30.0-34.9) HLD (hyperlipidemia) History of tobacco use Home Medications ?Medication ?Instructions ?Recorded ?Last Taken ?Type coenzyme Q10 100 mg capsule 200 mg PO DAILY 04/28/16 Unknown History simvastatin 40 mg tablet 40 mg PO QHS 04/28/16 Unknown History metformin 1,000 mg tablet 1,000 mg PO BID #20 tabs 04/24/19 Unknown Rx warfarin 2.5 mg tablet 2.5 mg PO .COMPLEX 08/22/20 Unknown History glipizide 5 mg tablet 5 mg PO .COMPLEX 08/08/21 Unknown History levothyroxine 88 mcg tablet 88 mcg PO DAILY 08/08/21 Unknown History losartan 50 mg tablet 50 mg PO DAILY 08/08/21 Unknown History carvedilol 25 mg tablet 25 mg PO BID 08/12/24 Unknown History Allergy/AdvReac Type Severity Reaction Status Date / Time erythromycin base Allergy Unknown Verified 08/12/24 03:51 Family History (Updated 08/12/24 @ 04:[address] Ines Collado MD) Father Heart disease Hypertension Diabetes Mother No problems noted. Surgical History History of lumpectomy of right breast Social History (Updated 08/12/24 @ 04:[address] Ines Collado MD) household members: spouse Smoking Status: Former smoker how long ago did patient quit smoking: Quit ~ 58 years prior. alcohol intake: never substance use type: does not use EXAM Physical Exam Const Vital Signs: 08/12/24 03:40 08/12/24 03:49 08/12/24 04:40 Temperature 98.3 F Temperature Source Oral Pulse Rate 72 64 Respiratory Rate 16 18 Respiratory Effort Normal Blood Pressure 174/61 H Blood Pressure Mean 98 Pulse Ox 97 98 Oxygen Delivery Method Room Air Room Air 08/12/24 06:00 08/12/24 06:40 Temperature Temperature Source Pulse Rate 70 126 H Respiratory Rate 12 19 H Respiratory Effort Blood Pressure 173/63 H 142/54 H Blood Pressure Mean 99 83 Pulse Ox 98 91 Oxygen Delivery Method Room Air Room Air MDM MDM MDM Narrative Medical decision making narrative: 78-year-old female with history of HTN, proximal atrial fibrillation, DM, HLD presents for evaluation of chest pain and near syncope. Patient has already taken 325 mg of aspirin. She was given nitro with minimal improvement. She currently describes her chest pain as pressure and minimum. Differential diagnosis includes but is not limited to ACS, electrolyte abnormality, anemia, hypertension urgency, hypertensive emergency, UTI. Cardiac workup ordered. On presentation, patient is hypertensive with SBP in the 170s. She states her baseline is in the 130s. IV hydralazine ordered. On chart review, patient had a cardiac cath 08/2019. + EF was 65%. She had 25% stenosis of the LAD. EKG and chest x-ray reviewed. See below. CBC without leukocytosis. Patient has baseline anemia of 10.6. BMP shows renal insufficiency with creatinine of 1.32. Her baseline is about 1.1. Patient has hyperglycemia. BNP unremarkable. Delta troponin negative. UA negative for UTI. On reevaluation, patient is still endorsing mild chest pressure. Given her continued chest pressure with moderate heart score of 5, patient would benefit from admission for further cardiac workup. Patient was educated on all her results as well as the plan. She confirmed understanding and agrees with the plan. Hospitalist service was contacted and patient was discussed with Dr. Crockett. She accepted admission. EKG: Interpreted by me/EM physician: EKG shows normal sinus rhythm without any ST elevation. She does have T wave inversion in lead III however this is similar to previous EKG. Heart rate 77. Diagnostic: Interpreted by me/EM physician: Chest x-ray without pneumonia, effusion, pneumothorax, cardiomegaly Impression: 1. Chest pain 2. Hypertension with history of hypertension 3. Renal insufficiency 4. Hyperglycemia with known diabetes 5. Chronic anemia Lab Data Labs: Laboratory Results - last 24 hr 08/12/24 08/12/24 08/12/24 04:00 04:35 06:38 WBC 7.4 RBC 3.78 L Hgb 10.6 L Hct 32.0 L MCV 84.7 MCH 28.0 MCHC 33.1 RDW Std Deviation 41.2 RDW Coeff of Jitendra 13.4 Plt Count 173 MPV 12.1 H Immature Gran % (Auto) 0.400 Neut % (Auto) 73.9 H Lymph % (Auto) 15.5 L [place] % (Auto) 7.5 Eos % (Auto) 2.2 Baso % (Auto) 0.5 Absolute Neuts (auto) 5.5 Absolute Lymphs (auto) 1.15 Nucleated RBC % 0 PT 23.8 H INR 2.1 Sodium 138 Potassium 4.0 Chloride 105 Carbon Dioxide 26.0 Anion Gap 7 BUN 19 H Creatinine 1.32 H Estim Creat Clear Calc 36.08 Est GFR (MDRD) Af Amer 50 L Est GFR (MDRD) Non-Af 41 L BUN/Creatinine Ratio 14.4 Glucose 199 H Calcium 9.3 Troponin I High Sens 6 5 B-Natriuretic Peptide 47.4 Urine Color Straw Urine Clarity Clear Urine pH 7.0 Ur Specific [place] 1.005 Urine Protein 15 H Urine Glucose (UA) Normal Urine Ketones Negative Urine Occult Blood Negative Urine Nitrite Negative Urine Bilirubin Negative Urine Urobilinogen Normal Ur Leukocyte Esterase 25 H Urine RBC 0 SEEN Urine WBC 0-5 SEEN Ur Squamous Epith Cells 0-5 SEEN Urine Bacteria 0 SEEN Urine Mucus 0 SEEN Radiography Diagnostic Testing: Clinical Impression(s) from Imaging Studies Chest X-Ray 08/12/24 04:16 IMPRESSION: No radiographic evidence of acute cardiopulmonary disease. Electronically Signed: Constantino Zavala MD at 6:09 EDT Reading Location ID and State: [facility] / [place] Tel , Service support , Discharge Plan Triage Chief Complaint: Chest Pain ED Provider: Uziel Saravia Dx/Rx/DC Orders Primary Care Provider: Flores Castillo
[2024-08-12 04:25] LABS: Absolute Lymphocyte Count 1.15 X10^3/uL (0.83-4.51); Absolute Neutrophil Count 5.5 X10^3/uL (2.0-7.7); Basophil# 0.04 X10^3/uL; Basophil% 0.5 % (0-1); Eosinophil# 0.16 X10^3/uL; Eosinophils% 2.2 % (0-5); Hemoglobin 10.6 g/dL (12.0-15.0); Lymphocyte # 1.15 X10^3/ul (0.83-4.51); Lymphocyte % 15.5 % (19-41); Mean Corp Hgb Conc 33.1 g/dL (32-36); Mean Corpuscular Volume 84.7 fL (81-99); Mean Platelet Vol. 12.1 fl (6.2-12.0); Monocyte# 0.56 X10^3/uL; Monocyte% 7.5 % (0-10); NRBC Flagged by Analyzer 0 % (0-5); Neutrophil # 5.48 X10^3/uL (2.7-7.7); Neutrophil % 73.9 % (47-70); Platelet Count 173 K/mm3 (150-450); RBC Distribution Width CV 13.4 % (11.6-14.6); RBC Distribution Width SD 41.2 fl (35.1-43.9); Red Blood Count 3.78 M/mm3 (4.2-5.4); White Blood Count 7.4 K/mm3 (4.4-11.0)
[2024-08-12] MEDS: hydrALAZINE 20 MG/ML Vial 10 MG IV (04:36)
[2024-08-12 04:45] LABS: Bacteria 0 SEEN /hpf (None Seen); Mucous, Urine 0 SEEN /hpf (<or=2+); Red Blood Cells-Urine 0 SEEN /hpf (0-5)
[2024-08-12 04:46] LABS: Color, Urine Straw (Yellow); Glucose, Dipstick Normal (Normal); Ketone-Dipstick Negative (Negative); Leukocyte Esterase-Dipstick 25 /ul (Negative); Nitrite-Dipstick Negative (Negative); Occult Blood-Urine Negative /ul (Negative); Protein-Dipstick 15 mg/dl (Negative); Specific Gravity, Urine 1.005 (1.002-1.030); Urine Bilirubin Dipstick Negative (Negative); Urine Clarity Clear (Clear); Urine Urobilinogen Normal (Normal)
[2024-08-12 04:46] LABS: Anion Gap 7 (5-15); BUN 19 mg/dL (7-18); BUN/Creat Ratio 14.4 RATIO (10-20); Calcium,Total 9.3 mg/dL (8.5-10.1); Chloride 105 mmol/L (98-107); Creatinine, Serum 1.32 mg/dL (0.55-1.02); EST Glomerular Filtration Rate 41 mL/min (>60); Est Glom Filt Rate - Afr Amer 50 mL/min (>60); Estimated Creatinine Clearance 36.08 ml/min; Glucose 199 mg/dL (74-106); Sodium Level 138 mmol/L (136-145); Troponin-I HS (w/2H Reflex) 6 pg/mL (3.0-54.0)
[2024-08-12 05:00] LABS: Squamous Epithelial Cells - UA 0-5 SEEN /hpf (5-10); White Blood Cells 0-5 SEEN /hpf (0-5)
[2024-08-12 05:09] LABS: International Normalized Ratio 2.1; Prothrombin Time (Protime)PT. 23.8 SECONDS (11.7-14.9)
[2024-08-12 05:20] LABS: BNP,B-Type NATRIURETIC PEPTIDE 47.4 pg/mL (0-100)
[2024-08-12] MEDS: Ondansetron 4 MG/2 ML Vial IV (06:07)
[2024-08-12 06:23] LABS: Reflex Troponin-HS? (from REC) Y
[2024-08-12 07:02] LABS: Troponin-I HS 5 pg/mL (3.0-54.0)
--- NOTE | 2024-08-12 07:32 | HP.PCM.HOS_ITS ---
HPI - General General Date of Admission: 08/12/24 Date of Service: 08/12/24 Chief Complaint: chest pain HPI Narrative KASIA ARMAS, is a 78 F with a PMH as outlined who presents via the ED on 08/12/2024 with a complaint of chest pain which started in the early hours of the morning of admission. She was apparently sitting at a computer at ~ 1am and started having tunnel vision, and felt like she was going to pass out. She checked her BP which was elevated in the 190s. She checked her blood sugar and says it was 177. she subsequently went to bed but was woken up with the chest pressure in the early hours of the morning. She denied any radiation of the pain nad denied any shortness of breath, palpitations, nausea or vomiting or any other symptoms. Review of systems is otherwise negative. Vitals in the ED were BP of 142/54, [place] of 126, RR of 19 and oxygen sats of 91% on room air. CBC showed Hb of 10.6, wbc of 7.4 and platelets of 173. INR is 2.1. Chemistry showed sodium of 138, potassium of 4 and Cr of 1.32. Bicarb was 26. Urinalysis showed no evidence of UTI. CXR showed no acute cardiopulmonary pathology and EKG showed no acute ST changes. She is being admitted to be managed for chest pain to rule out ACS. [facility] Medical History Valvular heart disease Bilateral carotid artery stenosis Essential hypertension Paroxysmal atrial fibrillation Atherosclerotic heart disease of [place] coronary artery without angina pectoris Abnormal cardiac enzyme level Diabetes mellitus, type II Obesity (BMI 30.0-34.9) HLD (hyperlipidemia) History of tobacco use Home Medications ?Medication ?Instructions ?Recorded ?Last Taken ?Type coenzyme Q10 100 mg capsule 200 mg PO DAILY 04/28/16 Unknown History simvastatin 40 mg tablet 40 mg PO QHS 04/28/16 Unknown History metformin 1,000 mg tablet 1,000 mg PO BID #20 tabs 04/24/19 Unknown Rx warfarin 2.5 mg tablet 2.5 mg PO .COMPLEX 08/22/20 Unknown History glipizide 5 mg tablet 5 mg PO .COMPLEX 08/08/21 Unknown History levothyroxine 88 mcg tablet 88 mcg PO DAILY 08/08/21 Unknown History losartan 50 mg tablet 50 mg PO DAILY 08/08/21 Unknown History carvedilol 25 mg tablet 25 mg PO BID 08/12/24 Unknown History Allergy/AdvReac Type Severity Reaction Status Date / Time erythromycin base Allergy Unknown Verified 08/12/24 03:51 Family History Father Heart disease Hypertension Diabetes Mother No problems noted. Surgical History History of lumpectomy of right breast Social History household members: spouse Smoking Status: Former smoker how long ago did patient quit smoking: Quit ~ 58 years prior. alcohol intake: never substance use type: does not use ROS Constitutional Constitutional: Reports fatigue, malaise and weakness; Denies anorexia, chills or fever(s) Eyes Eyes: Denies change in vision ENT HEENT: Denies dysphagia, headache(s), hearing loss or sore throat Cardiovascular Cardiovascular: Reports lightheadedness and other Details: chest pressure ; Denies chest pain, dyspnea on exertion, edema, orthopnea, palpitations, paroxysmal nocturnal dyspnea or rapid heart rate Respiratory/Chest Respiratory/Chest: Reports cough, dyspnea, productive cough, shortness of breath at rest and shortness of breath with exertion Gastrointestinal Gastrointestinal: Reports abdominal pain, constipation, diarrhea, nausea and vomiting Genitourinary Genitourinary: Denies dysuria Musculoskeletal Musculoskeletal: Denies arthralgias or joint pain Neurologic Neurologic: Denies confusion, dizziness, focal weakness, headache(s), numbness or paresthesias Psychiatric Psychiatric: Denies anxiety or depression Endocrine Endocrinology: Denies change in body appearance Vital Signs Vital Signs Vital Signs: 08/12/24 03:40 08/12/24 03:49 08/12/24 04:40 Temperature 98.3 F Temperature Source Oral Pulse Rate 72 64 Respiratory Rate 16 18 Respiratory Effort Normal Blood Pressure 174/61 H Blood Pressure Mean 98 Pulse Ox 97 98 Oxygen Delivery Method Room Air Room Air 08/12/24 06:00 08/12/24 06:40 Temperature Temperature Source Pulse Rate 70 126 H Respiratory Rate 12 19 H Respiratory Effort Blood Pressure 173/63 H 142/54 H Blood Pressure Mean 99 83 Pulse Ox 98 91 Oxygen Delivery Method Room Air Room Air Weight Weight: 182 lb 1.629 oz Body Mass Index (BMI) 30.3 Physical Exam Const alert, oriented x3 and no apparent distress General Appearance: cooperative HEENT normocephalic, head/scalp atraumatic, hearing grossly normal bilaterally, moist oral mucous membranes and oropharynx normal Mouth: oral and palatal mucosa normal Eyes PERRL, EOMs intact bilaterally and conjunctivae normal Neck no lymphadenopathy and supple Resp normal respiratory effort, no retractions, no use of accessory muscles and clear to auscultation bilaterally Cardio regular rate, regular rhythm, S1 normal heart sound, S2 normal heart sound and no murmurs GI normal to inspection, nondistended, normoactive bowel sounds, soft to palpation, non-tender and non-distended Extremity normal to inspection, full ROM and no clubbing, cyanosis or edema Neuro oriented x3, CN's II-XII intact bilaterally, moves all extremities and no focal motor deficits Sensorium / Orientation: awake and alert Motor Exam: strength 5/5 throughout Psych affect normal Results Lab / Micro Data 08/12/24 04:00 08/12/24 04:00 Labs: Laboratory Results - last 24 hr 08/12/24 04:00: WBC 7.4, RBC 3.78 L, Hgb 10.6 L, Hct 32.0 L, MCV 84.7, MCH 28.0, MCHC 33.1, RDW Std Deviation 41.2, RDW Coeff of Jitendra 13.4, Plt Count 173, MPV 12.1 H, Immature Gran % (Auto) 0.400, Neut % (Auto) 73.9 H, Lymph % (Auto) 15.5 L, [place] % (Auto) 7.5, Eos % (Auto) 2.2, Baso % (Auto) 0.5, Absolute Neuts (auto) 5.5, Absolute Lymphs (auto) 1.15, Nucleated RBC % 0, PT 23.8 H, INR 2.1, Sodium 138, Potassium 4.0, Chloride 105, Carbon Dioxide 26.0, Anion Gap 7, BUN 19 H, C reatinine 1.32 H, Estim Creat Clear Calc 36.08, Est GFR (MDRD) Af Amer 50 L, Est GFR (MDRD) Non-Af 41 L, BUN/Creatinine Ratio 14.4, Glucose 199 H, Calcium 9.3, Troponin I High Sens 6, B-Natriuretic Peptide 47.4 08/12/24 04:35: Urine Color Straw, Urine Clarity Clear, Urine pH 7.0, Ur Specific [place] 1.005, Urine Protein 15 H, Urine Glucose (UA) Normal, Urine Ketones Negative, Urine Occult Blood Negative, Urine Nitrite Negative, Urine Bilirubin Negative, Urine Urobilinogen Normal, Ur Leukocyte Esterase 25 H, Urine RBC 0 SEEN, Urine WBC 0-5 SEEN, Ur Squamous Epith Cells 0-5 SEEN, Urine Bacteria 0 SEEN, Urine Mucus 0 SEEN 08/12/24 06:38: Troponin I High Sens 5 Imaging Radiology Impression Chest X-Ray 08/12/24 04:16 IMPRESSION: No radiographic evidence of acute cardiopulmonary disease. Electronically Signed: Constantino Zavala MD at 6:09 EDT , Assessment & Plan Assessment/Plan (1) Chest pain: PLAN: Plan #Chest pressure, to rule out ACS * Admit to PCU troponins x 2 are negative * EKG showed no acute ST changes. * P.o. aspirin 81 mg daily. Nuclear stress test ordered for this morning. 2D echo ordered. BNP is only 47.4 also. * Check lipid panel. #Hypertension: On losartan. IV hydralazine as needed #Type 2 diabetes mellitus: Hold metformin and glipizide. Insulin sliding scale. Accu-Cheks ACHS. #History of A-fib: On carvedilol. Hold Coumadin #Elevated creatinine: * Creatinine is 1.32 with a baseline of around 1.03. * Creatinine was 1.13 on 07/26/2024. * Hydrate gently with IV fluids and trend creatinine. DVT prophylaxis: Patient on Coumadin. INR is 2.1 Code status: full code * Patient and daughter counseled extensively about different types of CODE STATUS including full code, DNR CCA and DNR CCA. * Patient elects to be DNRCCA no intubation. * Total wifb-ol-qfei time 16 minutes. Charges/Coding Visit Charges Inpatient E&M: 72228 Init Hosp L2 Procedures Hospitalists Procedures: 32423 Advncd Care Plan 30 Min
--- NOTE | 2024-08-12 07:37 | NURSING ---
DR FRANCIS FOR DR PRIETO
--- NOTE | 2024-08-12 07:37 | NURSING ---
PCU CHEST PAIN KORAM OBS
[2024-08-12] MEDS: Levothyroxine 88 MCG Tablet PO (13:04)
[2024-08-12] MEDS: Carvedilol 25 MG Tablet PO ×2 (14:04→21:37)
[2024-08-12 14:12] LABS: Troponin-I HS 6 pg/mL (3.0-54.0)
--- NOTE | 2024-08-12 14:18 | STRESSREP_ITS ---
Stress Test Report Date: 08/12/2024 Procedure: Pharmacologic stress nuclear imaging study Indications: Chest pain Consent: Per the patient Procedure: The patient underwent pharmacologic (Regadenoson) evaluation with a peak heart rate of 86 beats per minute (61%predicted maximal heart rate) and a peak blood pressure of 162/64 mmHg. The baseline ECG demonstrated normal sinus rhythm. EKG during lexiscan infusion revealed no significant ischemic changes. EKG post infusion revealed no significant ischemic changes [There were no cardiac dysrhythmias pretest, during pharmacologic infusion, or recovery]. [There was no complaint of chest discomfort during pharmacologic infusion or recovery]. The examination was discontinued secondary to completion of protocol. Impression: 1. Lexiscan stress test test is negative for Lexiscan infusion induced EKG changes of ischemia. 2. Lexiscan stress test test is negative for Lexiscan infusion induced chest pain. 3. Results of the nuclear portion of the test is as below Myocardial perfusion imaging study: Technique: The patient was injected with [] millicuries of technetium 99m Cardiolite and subsequently rest SPECT Cardiolite nuclear imaging was obtained in the horizontal long, vertical long, and short axis views. The patient underwent pharmacologic [Regadenoson 0.4mg] evaluation. Please see above for details. The patient was injected with [] millicuries of technetium 99m Cardiolite and subsequently stress SPECT Cardiolite nuclear imaging was obtained in the horizontal long, vertical long, and short axis views. A gated Cardiolite study at peak stress was obtained. Interpretation: Rest and stress SPECT Cardiolite nuclear imaging status post realignment, normalization, and attenuation correction demonstrate no evidence of significant ischemia or infarction. Gated images reveal no significant regional wall motion abnormalities. The reported LVEF is greater than 70%. Impression: 1. There is no evidence of significant ischemia or infarction. 2. Estimated ejection fraction is greater than 70%. This note was generated with [employer] software. It may contain incorrect words, spelling, and punctuation that were not noted in checking the note before signing.
[2024-08-12 14:35] LABS: Bedside Glucose 172 mg/dL (74-106)
[2024-08-12] MEDS: Losartan Potassium 50 MG Tablet PO ×2 (16:31→21:37)
[2024-08-12] MEDS: 0.9% Saline Lock 10 ML Syringe IV (16:32)
[2024-08-12 17:04] LABS: Bedside Glucose 201 mg/dL (74-106)
[2024-08-12] MEDS: Atorvastatin Calcium 20 MG Tablet PO (21:37)
[2024-08-12] MEDS: Insulin Lispro 100 UNIT/ML INSULN.PEN SC (21:37)
[2024-08-12 22:32] LABS: Bedside Glucose 154 mg/dL (74-106)
[2024-08-13 04:20] VITALS: BP 122/94; PULSE 62; RESP 16; TEMP 36.5; O2SAT 99
[2024-08-13] MEDS: Levothyroxine 88 MCG Tablet PO (04:22)
[2024-08-13 06:36] LABS: Bedside Glucose 132 mg/dL (74-106)
[2024-08-13 06:56] LABS: Absolute Lymphocyte Count 1.52 X10^3/uL (0.83-4.51); Absolute Neutrophil Count 4.2 X10^3/uL (2.0-7.7); Basophil# 0.03 X10^3/uL; Basophil% 0.5 % (0-1); Eosinophil# 0.19 X10^3/uL; Eosinophils% 2.9 % (0-5); Hematocrit 32.7 % (37-47); Hemoglobin 10.4 g/dL (12.0-15.0); Lymphocyte # 1.52 X10^3/ul (0.83-4.51); Lymphocyte % 23.1 % (19-41); Mean Corp Hgb Conc 31.8 g/dL (32-36); Mean Corpuscular Hgb 27.2 pg (27.0-32.0); Mean Corpuscular Volume 85.6 fL (81-99); Mean Platelet Vol. 12.4 fl (6.2-12.0); Monocyte# 0.62 X10^3/uL; Monocyte% 9.4 % (0-10); NRBC Flagged by Analyzer 0 % (0-5); Neutrophil # 4.19 X10^3/uL (2.7-7.7); Neutrophil % 63.6 % (47-70); Platelet Count 178 K/mm3 (150-450); RBC Distribution Width CV 13.6 % (11.6-14.6); RBC Distribution Width SD 42.3 fl (35.1-43.9); Red Blood Count 3.82 M/mm3 (4.2-5.4); White Blood Count 6.6 K/mm3 (4.4-11.0)
[2024-08-13 07:11] LABS: Anion Gap 5 (5-15); BUN 16 mg/dL (7-18); BUN/Creat Ratio 12.9 RATIO (10-20); Calcium,Total 9.2 mg/dL (8.5-10.1); Chloride 108 mmol/L (98-107); Creatinine, Serum 1.24 mg/dL (0.55-1.02); EST Glomerular Filtration Rate 44 mL/min (>60); Est Glom Filt Rate - Afr Amer 53 mL/min (>60); Estimated Creatinine Clearance 38.09 ml/min; Glucose 129 mg/dL (74-106); Potassium 3.6 mmol/L (3.5-5.1); Sodium Level 139 mmol/L (136-145)
[2024-08-13 07:53] LABS: Hemoglobin A1c 7.7 % (3.8-5.6)
[2024-08-13 10:28] VITALS: BP 145/54; PULSE 67; RESP 16; TEMP 36.9; O2SAT 97
[2024-08-13] MEDS: Losartan Potassium 50 MG Tablet PO (10:30)
[2024-08-13] MEDS: Carvedilol 25 MG Tablet PO (10:31)
--- NOTE | 2024-08-13 12:27 | DS.PCM_ITS ---
Providers Date of Admission: 08/12/24 Date of Discharge: 08/13/24 Primary Care Physician: Dr. Flores Castillo DO Reason For Visit: CHEST PAIN Diagnosis Discharge Diagnosis (1) Chest pain: Status: Acute Code(s): R07.9 - Chest pain, unspecified Plan #Chest pressure, to rule out ACS * Admit to PCU troponins x 2 are negative * EKG showed no acute ST changes. * P.o. aspirin 81 mg daily. Nuclear stress test ordered for this morning. 2D echo ordered. BNP is only 47.4 also. * Check lipid panel. #Hypertension: On losartan. IV hydralazine as needed #Type 2 diabetes mellitus: Hold metformin and glipizide. Insulin sliding scale. Accu-Cheks ACHS. #History of A-fib: On carvedilol. Hold Coumadin #Elevated creatinine: * Creatinine is 1.32 with a baseline of around 1.03. * Creatinine was 1.13 on 07/26/2024. * Hydrate gently with IV fluids and trend creatinine. DVT prophylaxis: Patient on Coumadin. INR is 2.1 Code status: full code * Patient and daughter counseled extensively about different types of CODE STATUS including full code, DNR CCA and DNR CCA. * Patient elects to be DNRCCA no intubation. * Total efsb-dl-hwyf time 16 minutes. Medications at Discharge Home Medications coenzyme Q10 100 mg capsule 200 mg PO DAILY 04/28/16 simvastatin 40 mg tablet 40 mg PO QHS 04/28/16 metformin 1,000 mg tablet 1,000 mg PO BID #20 tabs 04/24/19 warfarin 2.5 mg tablet 2.5 mg PO .COMPLEX 08/22/20 glipizide 5 mg tablet 5 mg PO .COMPLEX 08/08/21 levothyroxine 88 mcg tablet 88 mcg PO DAILY 08/08/21 losartan 50 mg tablet 50 mg PO BID 08/08/21 carvedilol 25 mg tablet 25 mg PO BID 08/12/24 nitroglycerin 0.4 mg sublingual tablet (Nitrostat) 0.4 mg sublingual Q5M PRN chest pain #30 tabs 08/13/24 Hospital Course Operations None Procedures Stress test Summary of Care Provided Minutes Spent on Discharge: 48 Hospital Course: KASIA ARMAS, is a 78 F with a PMH as outlined who presents via the ED on 08/12/2024 with a complaint of chest pain which started in the early hours of the morning of admission. She was apparently sitting at a computer at ~ 1am and started having tunnel vision, and felt like she was going to pass out. She checked her BP which was elevated in the 190s. She checked her blood sugar and says it was 177. she subsequently went to bed but was woken up with the chest pressure in the early hours of the morning. She denied any radiation of the pain nad denied any shortness of breath, palpitations, nausea or vomiting or any other symptoms. Review of systems is otherwise negative. Vitals in the ED were BP of 142/54, [place] of 126, RR of 19 and oxygen sats of 91% on room air. CBC showed Hb of 10.6, wbc of 7.4 and platelets of 173. INR is 2.1. Chemistry showed sodium of 138, potassium of 4 and Cr of 1.32. Bicarb was 26. Urinalysis showed no evidence of UTI. CXR showed no acute cardiopulmonary pathology and EKG showed no acute ST changes. She is being admitted to be managed for chest pain to rule out ACS. Troponin is were not elevated we will trend. She had a stress test on 08/12/2024 which showed no evidence of any ischemia showed EF of over 70% and no evidence of significant ischemia or infarction. Patient symptoms resolved and she felt much better. She had an uneventful stay during admission. Initially a 2D echo was also ordered but in light of the negative stress test, patient was counseled that she could follow- up with her PCP for stress test to be ordered on outpatient basis if it was thought to be warranted. She expressed understanding. Patient seen and examined prior to discharge. She had no complaints and had an uneventful night. Review of systems otherwise negative. Labs and vitals reviewed. Medication reviewed and reconciled. Physical Exam Const alert, oriented x3 and no apparent distress General Appearance: cooperative and comfortable Exam Limitations: no limitations HEENT normocephalic, head/scalp atraumatic, hearing grossly normal bilaterally, moist oral mucous membranes and oropharynx normal Mouth: oral and palatal mucosa normal Eyes PERRL, EOMs intact bilaterally and conjunctivae normal Neck no lymphadenopathy and supple Resp normal respiratory effort, no retractions, no use of accessory muscles and clear to auscultation bilaterally Cardio regular rate, regular rhythm, S1 normal heart sound, S2 normal heart sound and no murmurs GI normal to inspection, nondistended, normoactive bowel sounds, soft to palpation, non-tender and non-distended Extremity normal to inspection, full ROM and no clubbing, cyanosis or edema Skin no rashes or lesions noted Neuro oriented x3, CN's II-XII intact bilaterally, moves all extremities and no focal motor deficits Sensorium / Orientation: awake and alert Motor Exam: strength 5/5 throughout Psych affect normal Weight / BMI Weight Weight: 179 lb 0.246 oz Body Mass Index (BMI) 29.7 ABG / Lab / Microbiology Data 08/13/24 04:50 08/13/24 04:50 Laboratory: Laboratory Results - last 24 hr 08/12/24 13:32: Troponin I High Sens 6 08/12/24 14:17: POC Glucose 172 H 08/12/24 16:28: POC Glucose 201 H 08/12/24 21:35: POC Glucose 154 H 08/13/24 04:50: WBC 6.6, RBC 3.82 L, Hgb 10.4 L, Hct 32.7 L, MCV 85.6, MCH 27.2, MCHC 31.8 L, RDW Std Deviation 42.3, RDW Coeff of Jitendra 13.6, Plt Count 178, MPV 12.4 H, Immature Gran % (Auto) 0.500, Neut % (Auto) 63.6, Lymph % (Auto) 23.1, [place] % (Auto) 9.4, Eos % (Auto) 2.9, Baso % (Auto) 0.5, Absolute Neuts (auto) 4.2, Absolute Lymphs (auto) 1.52, Nucleated RBC % 0, Sodium 139, Potassium 3.6, Chloride 108 H, Carbon Dioxide 26.0, Anion Gap 5, BUN 16, Creatinine 1.24 H, Estim Creat Clear Calc 38.09, Est GFR (MDRD) Af Amer 53 L, Est GFR (MDRD) Non-Af 44 L, BUN/Creatinine Ratio 12.9, Glucose 129 H, Hemoglobin A1c 7.7 H, Calcium 9.2 08/13/24 06:15: POC Glucose 132 H D/C Instructions Discharge Diet: Low fat / Low cholesterol Discharge Activity: Return to Normal Activity Weight Bearing Status: Weight bearing as tolerated Call your doctor if you observe: Fever of 101 or Higher, Shortness of breath, Dizziness, Swelling in the ankles and Chest pain Meaningful Use Info Meaningful Use Meaningful Use Diagnoses (Choose all that apply): None applicable Ischemic Stroke Statin Dosing Therapy Reference: STATIN DOSE THERAPY REFERENCE: * Patients > 75 years receive moderate or high dose statin therapy. * Patients 75 years or YOUNGER should receive HIGH intensity statin dose unless contraindicated. You will be required to document reason for non-treatment if statin daily dose does not meet guidelines. HIGH DOSE STATIN THERAPY DAILY Atorvastatin > than or = to 40 mg Rosuvastatin > than or = to 20 mg Amlodipine + Atorvastatin > than or = to 2.5/40 mg Ezetimibe + Simvastatin 10/80 mg Simvastatin 80mg Discharge Plan Admission Admit Date/Time: 08/12/24 07:37 Primary Reason for Your Visit: chest pressure Attending Provider: Isabel Crockett Primary Care Provider: Flores Castillo Instructions Patient Instructions: ED Angina, Stable, ED Chest Pain, Noncardiac Additional Instructions / Restrictions: to see PCP to determine if 2D echo should be ordered on outpatient basis Discharge Orders/Prescriptions Prescriptions: New nitroglycerin [Nitrostat] 0.4 mg tablet, sublingual 0.4 mg sublingual Q5M PRN (Reason: chest pain) Qty: 30 1RF Rx Instructions: do not exceed 3 doses per episode Continued warfarin 2.5 mg tablet 2.5 mg PO .COMPLEX Rx Instructions: 2.5 mg PO Managed by PCP; takes 2.5mg everyday besides . Pt takes 5mg levothyroxine 88 mcg tablet 88 mcg PO DAILY losartan 50 mg tablet 50 mg PO BID simvastatin 40 MG tablet 40 mg PO QHS Patient Comments: cholesterol coenzyme Q10 100 MG capsule 200 mg PO DAILY Patient Comments: supplement metformin 1,000 MG tablet 1,000 mg PO BID Qty: 20 0RF glipizide 5 mg tablet 5 mg PO .COMPLEX Rx Instructions: 5 mg PO 1 tab in the am and 1 tab in the pm; carvedilol 25 mg tablet 25 mg PO BID Referrals / Follow Up: Flores Castillo DO [Primary Care Provider] - Within 1 Week Disposition Disposition (needs filled in before D/C Order can be placed): Home, Self Care Charges/Coding Visit Charges Inpatient E&M: 84456 Disch Hosp >30min
--- NOTE | 2024-08-13 12:32 | DCINST_ITS ---
Discharge Instructions Diet Discharge Diet: Low fat / Low cholesterol Activity Discharge Activity: Return to Normal Activity Weight Bearing Status: Weight bearing as tolerated Dressing / Incision Call your doctor if you observe: Fever of 101 or Higher, Shortness of breath, Dizziness, Swelling in the ankles and Chest pain Follow Up Care Test Results: Test results from this visit will be discussed in further detail at your follow- up appointment, if applicable. Discharge Plan Admission Admit Date/Time: 08/12/24 07:37 Primary Reason for Your Visit: chest pressure Attending Provider: Isabel Crockett Primary Care Provider: Flores Castillo Instructions Patient Instructions: ED Angina, Stable, ED Chest Pain, Noncardiac Additional Instructions / Restrictions: to see PCP to determine if 2D echo should be ordered on outpatient basis Discharge Orders/Prescriptions Prescriptions: New nitroglycerin [Nitrostat] 0.4 mg tablet, sublingual 0.4 mg sublingual Q5M PRN (Reason: chest pain) Qty: 30 1RF Rx Instructions: do not exceed 3 doses per episode Continued warfarin 2.5 mg tablet 2.5 mg PO .COMPLEX Rx Instructions: 2.5 mg PO Managed by PCP; takes 2.5mg everyday besides . Pt takes 5mg levothyroxine 88 mcg tablet 88 mcg PO DAILY losartan 50 mg tablet 50 mg PO BID simvastatin 40 MG tablet 40 mg PO QHS Patient Comments: cholesterol coenzyme Q10 100 MG capsule 200 mg PO DAILY Patient Comments: supplement metformin 1,000 MG tablet 1,000 mg PO BID Qty: 20 0RF glipizide 5 mg tablet 5 mg PO .COMPLEX Rx Instructions: 5 mg PO 1 tab in the am and 1 tab in the pm; carvedilol 25 mg tablet 25 mg PO BID Referrals / Follow Up: Flores Castillo DO [Primary Care Provider] - Within 1 Week Disposition Disposition (needs filled in before D/C Order can be placed): Home, Self Care
[2024-08-13 12:49] VITALS: BP 151/61; PULSE 70; RESP 16; O2SAT 96
== END 2024-08-13 13:13 | disposition home or self-care (01) ==
LOC: ED 07:44 → PCU 07:55
PROVIDERS: Admitting Provider Student in an Organized Health Care Education/Training Program; Emergency Provider Surgery; PCP Family Medicine; Visit Provider Student in an Organized Health Care Education/Training Program
DX: R07.89 Other chest pain (principal); I48.0 Paroxysmal atrial fibrillation; E11.65 Type 2 diabetes mellitus with hyperglycemia; Z87.891 Personal history of nicotine dependence; E78.5 Hyperlipidemia, unspecified; D64.9 Anemia, unspecified; I10 Essential (primary) hypertension; Z79.01 Long term (current) use of anticoagulants; I25.10 Atherosclerotic heart disease of native coronary artery without angina pectoris; Z79.84 Long term (current) use of oral hypoglycemic drugs; Z79.899 Other long term (current) drug therapy; R79.89 Other specified abnormal findings of blood chemistry
CPT/HCPCS: 36415; 71045; 78452; 80048; 81001; 82962; 83036; 83880; 84484; 85025; 85610; 93005; 93017; 96374; 96375; 99221; 99285; A9500; A4216; G0378; J2405; J2785

== ENCOUNTER → 2025-05-03 | Outpatient (CLI) | payer MEDICARE, SELFPAY ==
[2025-05-03 18:23] LABS: Anion Gap 15 (5-15); BUN 19 mg/dL (4-19); Calcium,Total 9.8 mg/dL (7.6-11.0); Carbon Dioxide 21.6 mmol/L (21.0-32.0); Chloride 100 mmol/L (98-108); Creatinine, Serum 1.37 mg/dL (0.70-1.20); EST Glomerular Filtration Rate 39 (>60); Glucose 196 mg/dL (70-99); Potassium 4.2 mmol/L (3.3-5.1); Sodium Level 137 mmol/L (133-145)
[2025-05-03 20:31] LABS: Microalbumin,Random Urine 58.2 mg/L (NO RANGE EST.); Microalbumin:Creatinine Ratio 97.5 mg/g CRE
== END | disposition home or self-care (01) ==
LOC: BFHLAB 15:09
PROVIDERS: PCP Family Medicine; Visit Provider Family Medicine
DX: E11.9 Type 2 diabetes mellitus without complications (principal); Z51.81 Encounter for therapeutic drug level monitoring
CPT/HCPCS: 36415; 80048; 82043; 82570